=== PATIENT | female | born 1950 | race Caucasian/White ===

== ENCOUNTER 2017-05-22 20:02 | Inpatient (IN) ==
--- NOTE | 2017-05-22 20:45 | EKG Report ---
Stationary ECG Study [facility] ER Test Date: 05/22/2017 8:43:23 PM Pat Name: PALMER KELLY Department: Room: Gender: F Explosive Operator Fuse: SR : 1950 Requested by: Juanita Carter Order Number: [id number] Km MD: MOLLY DAVIS Intervals [place] Rate: 66 P: 65 WA: 159 QRS: 76 QRSD: 108 T: 79 QT: 447 QTc: 460 Interpretive Statements SINUS RHYTHM SEPTAL MYOCARDIAL INFARCTION, OF INDETERMINATE AGE Electronically Signed On 05-23-17 09:27:20 CDT by MOLLY DAVIS [email or web address]
[2017-05-22 20:49] LABS: Basophils % 0.3 % (0.0-0.8); Eosinophils # 0.2 10*3/uL (0.0-0.87); Eosinophils % 1.9 % (0.00-10.9); Hematocrit 34.9 VOL% (35.7-47.0); Hemoglobin 12.4 GM/DL (12.0-16.0); Immature Granulocytes % 0.7 %; Immature Granulocytes Absolute 0.07 #; Lymphocytes # 2.3 10*3/uL (1.4-4.0); Lymphocytes % 22.8 % (21.3-54.2); Mean Corpuscular HGB Conc 35.5 GM/DL (32-36); Mean Corpuscular Hemoglobin 32 PG (27-34); Mean Corpuscular Volume 89.9 FL (87-102); Mean Platelet Volume 9.6 FL (9.6-12.0); Monocytes # 0.5 10*3/uL (0.11-0.8); Monocytes % 5.3 % (1.7-12.7); Neutrophils # 7.1 10*3/uL (1.4-7.4); Platelet Count 212 T/CUMM (130-400); Red Blood Count 3.88 MC/CUMM (3.8-5.5); Red Cell Distribution Width 12.9 % (9.3-17.3); White Blood Count 10.2 T/CUMM (4-12)
[2017-05-22 20:55] LABS: INR 1.1; PT Patient Result 11.2 SECS
[2017-05-22 21:03] LABS: Alanine Aminotransferase 18 U/L (13-56); Albumin 3.1 G/DL (3.4-5.0); Alkaline Phosphatase 104 U/L (45-117); Aspartate Amino Transferase 16 U/L (0-37); Bilirubin,Total < 0.39 MG/DL (0.2-1.0); Blood Urea Nitrogen 12 MG/DL (7-18); Calcium 8.1 MG/DL (8.5-10.1); Glucose 142 MG/DL (74-106); Osmolality,Calculated 267.4 MOS/KG (273-304); Potassium 3.2 MMOL/L (3.5-5.1); Sodium 133 MMOL/L (136-145); Total Protein 5.7 G/DL (6.4-8.3)
[2017-05-22] MEDS ORDERED: ONDANSETRON 4 MG/2 ML VIAL ONE (21:03)
[2017-05-22 21:04] LABS: Troponin I Only < 0.015 NG/ML (0.00-0.045)
[2017-05-22 21:29] LABS: Apearance,Urine CLEAR (Clear); Bilirubin,Urine Negative (Negative); Blood, Urine Negative (Negative); Glucose,Urine (UA) Negative (Negative); Hyaline Casts,Urine 19 /LPF (0-3); Ketones,Urine Negative (Negative); Mucus,Urine Occasional /LPF (Occasional); Nitrite,Urine Negative (Negative); Protein,Urine Negative; RBC,Urine <1 /HPF (0-4); Urine Color Yellow (Yellow); Urine Specific Gravity 1.011 (1.001-1.035); Urine Urobilinogen < 2.0 EU/DL (0.2-1.0); WBC,Urine 1 /HPF (0-6)
[2017-05-22] MEDS ORDERED: ACETAMINOPHEN 325 MG TABLET PO PRN (22:17)
[2017-05-22] MEDS ORDERED: ONDANSETRON 4 MG/2 ML VIAL IV PRN (22:17)
[2017-05-22] MEDS ORDERED: BISACODYL 5 MG TABLET PO PRN (22:17)
--- NOTE | 2017-05-22 22:20 | Hospitalist History & Physical ---
Assessment and Plan (1) Subcapital fracture of left femur Status: Acute Current Visit: Yes Qualifiers: Encounter type: initial encounter Fracture type: closed Qualified Code(s) : S72.012A - Unspecified intracapsular fracture of left femur, initial encounter for closed fracture (2) Insulin dependent diabetes mellitus Status: Acute Current Visit: Yes (3) Near syncope Status: Acute Current Visit: Yes (4) Hypoglycemia associated with diabetes Status: Acute Current Visit: Yes (5) COPD (chronic obstructive pulmonary disease) Status: Acute Current Visit: Yes Qualifiers: COPD type: unspecified COPD Qualified Code(s): J44.9 - Chronic obstructive pulmonary disease, unspecified (6) Smoker Status: Acute Current Visit: Yes (7) History of coronary artery disease Status: Acute Assessment and plan: Plan: Admit to hospitalist service, orthopedic consultation and fixation likely in the morning Serial Accu-Cheks/sliding-scale insulin Supportive care for pain, nicotine withdrawal Supplemental O2, duo nebs given her history of COPD Near syncopal episode sounds like a vasovagal event, no recent angina/shortness of breath Current Visit: Yes History of Present Illness Chief complaint: Fall with left hip pain History of present illness: Ms. Hernandez is a 66 year old female with insulin-dependent diabetes who reports very labile blood sugars and frequent hypoglycemia causing frequent dizziness and falls, hypertension, smoker, history of coronary artery disease. She is here with a left hip fracture. Earlier this afternoon she was in her garden picking tomatoes when she stood up rather abruptly, became dizzy and fell on her left side resulting in severe pain, 8 out of 10 at worst, nonradiating, partially relieved with pain medication in the ER. She likely had a vasovagal event, no true syncope. She has not had chest pain/angina, no shortness of breath, no nausea vomiting or diarrhea. She relates her frequent dizziness and multiple falls due to very labile blood sugar, with frequent hypoglycemia in the 30s-40s multiple times per week. She states she has been a brittle diabetic for many years. She will be admitted to the hospitalist service and will likely undergo fixation of her fracture tomorrow. Allergies Allergy/AdvReac Type Severity Reaction Status Date / Time Penicillins Allergy RASH Verified 05/22/17 20:38 Medical,Surgical,& Family Hx - Medical History Cardio: History of: CAD (History of LAD and RCA stent in 2013), Hypertension Endocrine: History of: Diabetes Mellitus (IDDM) Respiratory: History of: COPD - Surgical History Cardiac Surgeries: Sugical HX of: Cardiac Catheterization - Family History Family History: Reports;: Family Hypertension - Social History Smoking Status: Current every day smoker Have you smoked in the last 12 months: Yes Time spent discussing smoking cessation with patient: 3 to 10 minutes Frequency of Alcohol Use: None Type of Drug Use: None Marital Status: Unknown Lives With:: Spouse Functional capacity: independent ambulation Review of systems: A 12 point review of systems is negative except as specified in the HPI Exam - Constitutional Vitals: Period Temp Pulse Resp BP Sys/Barrett Pulse Ox Last 24 Hr 97.4 F-97.4 F 92-92 18-18 121-121/72-74 92 Exam: EXAM: CONSTITUTIONAL: non toxic, NAD HEENT: NC, AT, OP benign, KAMILA, EOMI CV: RRR no m/g/r RESP: clear B/L, no w/r/r GI: abd soft, NT, ND, +bowel sounds INTEGUMENTARY: no lesions or rash EXTREMITIES: No edema, pedal pulses intact, pain along the lateral aspect of the left lower extremity NEURO: no focal deficits PSYCH: unremarkable, A/O x3 Results - Labs CBC & BMP: 05/22/17 20:27 05/22/17 20:27 Lab Results: I have reviewed the past 24 hour labs - EKG EKG shows: sinus rhythm - Diagnostic Findings Procedure: Chest x-ray: image reviewed by me, X-ray: image reviewed by me
[2017-05-22] MEDS ORDERED: HYDROmorphone 2 MG/1 ML VIAL IV STA (22:23)
[2017-05-22] MEDS ORDERED: HYDROmorphone 2 MG/1 ML VIAL ONE (22:25)
--- NOTE | 2017-05-22 22:59 | Emergency Department Note ---
IIndia Mantricia, am scribing for, and in the presence of, Juanita Carter DO 20:52. I, Juanita Carter DO, personally performed the services described in this documentation, ascribed by Jackie Osborne in my presence, and it is both accurate and complete . Arrival - Arrival Chief Complaint: Fall Stated Complaint: Fall ED Nursing Triage Note: Pt to triage with c/o fall that happpen this afternoon. Pt states she was working in her garden. Pt doesnt remember what happen prior to her falling and unsure if she lost any LOC. Pt does complain of sever left hip pain and and pain all down the left side. Pt arrived on back board. Pt was giving 5mg morphine IVP and 8mg Zofran IVP, and 1 liter of NS. Blood sugar check upon arrival -146. Mode of Arrival: Stretcher Limitations: No Limitations Source: Patient - History of Present Illness HPI Narrative: Pt is a 66 y/o white female arriving to ED by EMS for evaluation of injuries s/ p fall that happened an hour [employer]. Pt states that she walked outside to pick tomatoes from the vine when she became dizzy and fell. She states that the sun was not beaming; however, it was hot out. Pt denies any LOC or hitting her head but reports that she did hit the ground hard resulting in left hip pain and leg pain. She was unable to walk or move her left leg after the fall. EMS reports she was confused on scene. Pt states that she has fallen once before due to dizziness and has had several episodes of syncope that she attributes to hypoglycemia. Pt has a PMHx of IDDM, HTN, and HLD. She reports no other complaints to ED. Onset (ago): hour(s) Consistency: constant Severity: mild Allergies/Adverse Reactions: Allergies Allergy/AdvReac Type Severity Reaction Status Date / Time Penicillins Allergy RASH Verified 05/22/17 20:38 Review of System - Review of System 12 point system: reviewed and no additional remarkable complaints except as stated - Review of System Constitutional: Absent: chills, diaphoresis, fever Gastrointestinal: Absent: abdominal pain, nausea, vomiting, diarrhea Musculoskeletal: Present: leg pain (left), other (left hip pain). Absent: arm pain, back pain, neck pain Neurological: Absent: headache, weakness, numbness Medical,Surgical,& Family Hx - Medical History Cardio: History of: Hypertension Endocrine: History of: Diabetes Mellitus (IDDM) - Social History Smoking Status: Current every day smoker Frequency of Alcohol Use: None Type of Drug Use: None Exam Vital Signs: Vital Signs Temperature 97.4 F L 05/22/17 20:15 Pulse Rate 92 H 05/22/17 20:15 Respiratory Rate 18 05/22/17 20:15 Blood Pressure 121/74 05/22/17 20:15 O2 Sat by Pulse Oximetry 92 L 05/22/17 20:15 - General General appearance: alert, in no apparent distress - Head Head exam: Present: atraumatic, normocephalic, normal inspection - Eye Eye exam: Present: normal appearance, PERRL, EOMI - ENT ENT exam: Present: normal exam, normal oropharynx, mucous membranes moist, TM's normal bilaterally, normal external ear exam - Neck Neck exam: Present: normal inspection, full ROM, trachea midline. Absent: tenderness - Chest Chest inspection: Present: normal inspection, symmetric chest wall rise. Absent : tenderness - Respiratory Respiratory exam: Present: other (distant lung sounds) - Cardiovascular Cardiovascular exam: Present: regular rate, normal rhythm, normal heart sounds - Abdominal Exam Abdominal exam: Present: soft, normal bowel sounds. Absent: distention, tenderness, guarding, rebound - Extremities Exam Extremities exam: Present: tenderness (left hip down into left leg), normal capillary refill - Back Exam Back exam: Present: normal inspection, full ROM. Absent: tenderness - Neurological Exam Neurological exam: Present: alert, oriented X3, CN II-XII intact, normal gait, reflexes normal - Psychiatric Psychiatric exam: Present: normal affect, normal mood - Skin Skin exam: Present: warm, dry, intact, normal color Course Course Narrative: strong suspicion that left hip fracture. Requiring pain medication and nausea medication. Xray does confirm. however, given history of syncope that caused the fall, I will admit the patient to hospitalist for further workup and will call orthopedics as senior treasury consultant. Both services agree this is the best plan. Patient and family are notified and agree. - Consultations Consultation #1: holli Astudillo. Consultation #2: Hospitalist Results - Labs CBC & BMP: 05/22/17 20:27 05/22/17 20:27 Lab Results: I have reviewed the patients labs - EKG EKG results: interpreted by KOBI, normal axis, normal ST/T - Diagnostic Findings Procedure: Chest x-ray: image reviewed by me (normal), X-ray: image reviewed by me (left intertrocanteric fracture) Disposition Clinical Impression: Fracture, intertrochanteric, left femur Case discussed with: patient Disposition: Still a Patient Condition: Stable
[2017-05-22] MEDS ORDERED: DEXTROSE 50% 25 GM/50 ML VIAL IV PRN (23:07)
[2017-05-22] MEDS ORDERED: GLUCAGON 1 MG VIAL IM PRN (23:07)
[2017-05-22] MEDS: INSULIN REGULAR 100 UNIT/ML SUBCUT SCH (23:50)
[2017-05-23] MEDS ORDERED: NICOTINE 21 MG/24 HR PATCH TRANSDERM PRN (00:33)
[2017-05-23] MEDS ORDERED: CLINDAMYCIN INJ 900 MG in PREMIX 1 EACH IV ONE (00:50)
[2017-05-23] MEDS ORDERED: MAGNESIUM HYDROXIDE SUSP 30 ML UDCUP PO PRN ×2 (00:50→14:13)
[2017-05-23 02:14] LABS: PT Patient Result 11.1 SECS
[2017-05-23 02:39] LABS: Calcium 8.4 MG/DL (8.5-10.1); Osmolality,Calculated 262.7 MOS/KG (273-304); Potassium 3.3 MMOL/L (3.5-5.1)
[2017-05-23 02:51] LABS: Basophils % 0.3 % (0.0-0.8); Eosinophils # 0.1 10*3/uL (0.0-0.87); Eosinophils % 0.7 % (0.00-10.9); Hematocrit 37.1 VOL% (35.7-47.0); Hemoglobin 13.1 GM/DL (12.0-16.0); Immature Granulocytes % 0.5 %; Immature Granulocytes Absolute 0.06 #; Lymphocytes # 2.4 10*3/uL (1.4-4.0); Lymphocytes % 20.8 % (21.3-54.2); Mean Corpuscular HGB Conc 35.3 GM/DL (32-36); Mean Corpuscular Hemoglobin 32 PG (27-34); Mean Corpuscular Volume 89.6 FL (87-102); Mean Platelet Volume 9.8 FL (9.6-12.0); Monocytes # 0.6 10*3/uL (0.11-0.8); Monocytes % 5.4 % (1.7-12.7); Neutrophils # 8.5 10*3/uL (1.4-7.4); Neutrophils % 72.3 % (38.7-73.9); Platelet Count 218 T/CUMM (130-400); Red Blood Count 4.14 MC/CUMM (3.8-5.5); Red Cell Distribution Width 12.7 % (9.3-17.3); White Blood Count 11.7 T/CUMM (4-12)
[2017-05-23] MEDS: MORPHINE 2 MG/1 ML SYRINGE IV PRN ×3 (03:59→22:18)
[2017-05-23] MEDS: INSULIN REGULAR 100 UNIT/ML SUBCUT SCH ×5 (05:12→22:11)
--- NOTE | 2017-05-23 07:46 | Orthopedic Consult Note ---
History of Present Illness Chief complaint: Left hip pain History of present illness: Ms. Hernandez is a 66 year old female who fell yesterday while in her garden. The patient has been having presyncopal episodes over the last several weeks. She has had a prior fall in her house. She denies complete loss of consciousness. She denies any previous history of problems with her left hip. She denies any other current injury. I have treated her for a previous right tibia fracture with intramedullary nailing. Home Medications Medication Instructions Recorded Confirmed Type Amitriptyline HCl 1 tablet PO BEDTIME 05/23/17 05/23/17 History Atorvastatin [Lipitor] 20 mg PO BEDTIME 05/23/17 05/23/17 History Butalb/Acetaminophen/Caffeine 1 tablet PO BID PRN 05/23/17 05/23/17 History [Esgic 50-325-40 mg Tablet] Fluoxetine HCl 1 capsule PO DAILY 05/23/17 05/23/17 History Hydrocodone/Acetaminophen [[place] 1 tablet PO TID PRN 05/23/17 05/23/17 History 10-325 Tablet] Meloxicam 15 mg PO DAILY 05/23/17 05/23/17 History Nitroglycerin Sl Tab [Nitrostat] 1 tablet SL DIRECTED 05/23/17 05/23/17 History Pregabalin [Lyrica] 1 capsule PO BID 05/23/17 05/23/17 History Trazodone HCl 2 tablet PO BEDTIME 05/23/17 05/23/17 History Valsartan/Hydrochlorothiazide 1 tablet PO DAILY 05/23/17 05/23/17 History [Valsartan-Hctz 320-12.5 mg Tab] amLODIPine [Norvasc] 1 tablet PO BEDTIME 05/23/17 05/23/17 History buPROPion HCl [Bupropion HCl] 1 tablet PO BID 05/23/17 05/23/17 History hydrOXYzine HCL TAB [Atarax Tab] 25 mg PO BID PRN 05/23/17 05/23/17 History hydrOXYzine HCl [Hydroxyzine HCl] 1 tablet PO BID PRN 05/23/17 05/23/17 History hydroCHLOROthiazide 1 capsule PO BID 05/23/17 05/23/17 History [Hydrochlorothiazide] Allergies Allergy/AdvReac Type Severity Reaction Status Date / Time Penicillins Allergy RASH Verified 05/23/17 00:37 Medical,Surgical,& Family Hx - Medical History Cardio: History of: CAD (History of LAD and RCA stent in 2013), Hypertension Endocrine: History of: Diabetes Mellitus (IDDM) Respiratory: History of: COPD - Surgical History Cardiac Surgeries: Sugical HX of: Cardiac Catheterization Abdominal Surgeries: Patient denies: Abdominal Surgery - Family History Family History: Reports;: Family Hypertension - Social History Smoking Status: Current every day smoker Frequency of Alcohol Use: None Type of Drug Use: None Exam - Constitutional Vitals: Period Temp Pulse Resp BP Sys/Barrett Pulse Ox Last 24 Hr 97.1 F-98.8 F 64-92 16-18 109-131/67-83 91-94 Alert and oriented. Left lower extremity shows some mild shortening. No external rotation. Sensation is decreased in a stocking distribution to just distal to her knee. She has a 2+ dorsalis pedis pulse. Because of pain she is able to limitedly flex and extend her ankle. She is unable to move her toes. AP pelvis, AP lateral left hip was reviewed. Demonstrates a minimally displaced left intertrochanteric hip fracture. Impression: Left intertrochanteric hip fracture. Plan: I have advised open reduction fixation of her left hip. Risks, benefits and rationale for the procedure were discussed. All questions were answered. We will proceed later today. Results - Labs CBC & BMP: 05/23/17 01:54 05/23/17 01:54 Assessment and Plan (1) Closed intertrochanteric fracture of left hip Status: Acute Current Visit: Yes Qualifiers: Encounter type: initial encounter Fracture alignment: displaced Qualified Code(s): S72.142A - Displaced intertrochanteric fracture of left femur , initial encounter for closed fracture
--- NOTE | 2017-05-23 07:51 | XRay Report ---
XR hip 2v w pelvis LT Clinical Information: FALL, PAIN Comparison: None available Findings: There is an acute mildly comminuted left intertrochanteric femoral neck fracture. There is no evidence of dislocation at the hip joint. There is overlying soft tissue swelling. No focal osseous or soft tissue lesions are identified. Impression: Acute intertrochanteric left femoral neck fracture as detailed above. No evidence of hip dislocation. PROCEDURE INTERPRETED AT [facility], [place] DEPARTMENT OF RADIOLOGY Final Report Signed by: Mando Chacko
--- NOTE | 2017-05-23 07:53 | XRay Report ---
Exam: XR chest 1V portable Indication: Preop Comparison study: 10/02/2013 Findings: Chronic interstitial scarring changes are again noted and slightly increased from prior. No focal airspace disease is evident. There is no pneumothorax or pleural effusion. Cardiac silhouette images are contours appear stable from prior. No acute osseous abnormality. Impression: Chronic interstitial changes. Otherwise, no significant change. PROCEDURE INTERPRETED AT [facility] DEPARTMENT OF RADIOLOGY Final Report Signed by: Mando Chacko
[2017-05-23] MEDS: PANTOPRAZOLE 40 MG TABLET PO SCH (08:45)
--- NOTE | 2017-05-23 10:23 | Hospitalist Progress Note ---
Assessment and Plan (1) Insulin dependent diabetes mellitus Status: Chronic Assessment and plan: Patient at this time has not provided any indication regarding her routine management of her diabetes at home. Current Visit: Yes (2) COPD (chronic obstructive pulmonary disease) Status: Chronic Assessment and plan: Patient is a smoker apparently currently requiring no active treatment. Her chest x-ray is substantially SLICK rotated however both pulmonary artery appear to be dilated. There is a diffuse overall fibrosis with linear stranding towards the right upper lobe. Current Visit: Yes Qualifiers: COPD type: unspecified COPD Qualified Code(s): J44.9 - Chronic obstructive pulmonary disease, unspecified (3) Closed intertrochanteric fracture of left hip Status: Acute Assessment and plan: Fall associated with syncopal episode. Current Visit: Yes Qualifiers: Encounter type: initial encounter Fracture alignment: displaced Qualified Code(s): S72.142A - Displaced intertrochanteric fracture of left femur , initial encounter for closed fracture Hospitalist: Subjective Interval history: 66-year-old female long-term diabetic, hypertensive with history of coronary artery disease with percutaneous intervention to the left anterior descending coronary artery and right coronary artery approximately 4 years ago. Patient has been bothered by intermittent episodes of lightheadedness and yesterday while working in the garden had an episode where she lost consciousness completely. With this she sustained a left hip fracture. She has a history of palpitations her monitor strips thus far shown only sinus rhythm her EKG shows clockwise precordial rotation with no evidence of LVH. Her vital signs are stable overnight. She is anticipated for surgical repair today. Exam - Constitutional Vitals: Period Temp Pulse Resp BP Sys/Barrett Pulse Ox Last 24 Hr 97.1 F-98.8 F 64-92 16-18 109-131/67-83 91-94 General appearance: normal weight, no acute distress - Respiratory Respiratory exam: Present: clear to auscultation bilaterally. Absent: rales, rhonchi, wheezes - GI/Abdominal GI/Abdominal exam: Present: normal bowel sounds. Absent: tenderness - Extremities Exam Extremities exam: Absent: edema - Neurological Exam Neurological exam: Present: alert, oriented X3 Results - Labs CBC & BMP: 05/23/17 01:54 05/23/17 01:54 - Impressions Sinus rhythm with clockwise precordial rotation. Criteria for right ventricular hypertrophy not met. - Diagnostic Findings Procedure: Chest x-ray: image reviewed by me (Normal heart size, interstitial fibrotic change, hilar fullness bilaterally)
[2017-05-23] MEDS ORDERED: ALBUTEROL/IPRATROPIUM 3 ML NEB RESP TX PRN (11:06)
[2017-05-23] MEDS ORDERED: BACITRACIN OINT 0.9 GM PACK TOP ONE (13:06)
[2017-05-23] MEDS ORDERED: DEXTROSE 50% 25 GM/50 ML VIAL IV ONE (13:49)
[2017-05-23] MEDS ORDERED: LIDOCAINE 2% 5 ML VIAL ONE (13:51)
[2017-05-23] MEDS ORDERED: ONDANSETRON 4 MG/2 ML VIAL ONE ×2 (13:51→15:32)
[2017-05-23] MEDS ORDERED: PROPOFOL 200 MG/20 ML VIAL IV ONE (13:51)
[2017-05-23] MEDS ORDERED: PHENYLEPHRINE 1 MG/10 ML SYRINGE IV ONE (13:51)
[2017-05-23] MEDS ORDERED: MORPHINE 2 MG/1 ML SYRINGE IV PRN (14:13)
--- NOTE | 2017-05-23 14:49 | Operative Note ---
Date of procedure: 05/23/17 Procedure: DIAGNOSIS: Left hip intertrochanteric fracture PROCEDURE: Left ORIF hip (CPT# 25382) SURGEON: Wilda ANESTHESIA: General PROCEDURE and FINDINGS: After adequate anesthesia was induced, the patient was placed on the fracture table. A provisional reduction was obtained. The limb was prepped and draped in the usual sterile fashion. Lateral approach to the proximal femur was made. Skin, subcutaneous tissue and iliotibial band were incised. Vastus lateralis was elevated from the intramuscular septum and lateral aspect of the femur. Guidepin was placed, overreamed, and tapped. 90 mm hip screw was placed followed by a 130 degree 3 hole plate. Screw holes were filled. Wound was irrigated. Iliotibial band was repaired with O Vicryl [id number] sutures. Subcutaneous tissues were repaired deep with 2-0 Vicryl runner and superficially with 3-0 interrupted Vicryl suture. Simran were used to approximate the skin. Sterile occlusive dressing and bacitracin were applied. Image intensification was used throughout the procedure. EBL: 10 cc Surgeon / Physician: Abdirahman Astudillo Jr. Results - Labs CBC & BMP: 05/23/17 01:54 05/23/17 01:54 Discharge Plan - Discharge Medications No Action hydrOXYzine HCL TAB [Atarax Tab] 25 mg PO BID PRN PRN Reason: Itching Nitroglycerin Sl Tab [Nitrostat] 1 tablet SL DIRECTED hydrOXYzine HCl [Hydroxyzine HCl] 1 tablet PO BID PRN PRN Reason: Itching buPROPion HCl [Bupropion HCl] 1 tablet PO BID hydroCHLOROthiazide [Hydrochlorothiazide] 1 capsule PO BID amLODIPine [Norvasc] 1 tablet PO BEDTIME Pregabalin [Lyrica] 1 capsule PO BID Meloxicam 15 mg PO DAILY Valsartan/Hydrochlorothiazide [Valsartan-Hctz 320-12.5 mg Tab] 1 tablet PO DAILY Trazodone HCl 2 tablet PO BEDTIME Hydrocodone/Acetaminophen [[place] 10-325 Tablet] 1 tablet PO TID PRN PRN Reason: Pain Atorvastatin [Lipitor] 20 mg PO BEDTIME Amitriptyline HCl 1 tablet PO BEDTIME Butalb/Acetaminophen/Caffeine [Esgic 50-325-40 mg Tablet] 1 tablet PO BID PRN PRN Reason: Headache Fluoxetine HCl 1 capsule PO DAILY - Follow Up or Referral - Forms/Instructions
--- NOTE | 2017-05-23 15:12 | Anesthesia Post-Op ---
Anesthesia Post OP - Post Ansesthetic Evaluation Patient seen in post op: Yes Resp: within normal limits CV: within normal limits Mental: within normal limits Temp: within normal limits [id number]-[id number]: within normal limits Nausea and Vomiting: within normal limits Pain: within normal limits
[2017-05-23] MEDS ORDERED: diphenhydrAMINE 50 MG/1 ML VIAL IV ONE (15:16)
[2017-05-23] MEDS ORDERED: diphenhydrAMINE 50 MG/1 ML VIAL ONE (15:17)
[2017-05-23] MEDS ORDERED: SEVOFLURANE 1 UNIT/15 MINUTE INH ONE (15:18)
[2017-05-23] MEDS ORDERED: MIDAZOLAM 2 MG/2 ML VIAL ONE (15:19)
[2017-05-23] MEDS ORDERED: ACETAMINOPHEN 1,000 MG/100 ML VIAL IV ONE (15:19)
[2017-05-23] MEDS ORDERED: ONDANSETRON 4 MG/2 ML VIAL IV PRN (15:28)
[2017-05-23] MEDS ORDERED: HYDROmorphone 2 MG/1 ML VIAL ONE (15:32)
[2017-05-23] MEDS: HYDROmorphone 2 MG/1 ML VIAL IV PRN ×4 (15:35→16:03)
--- NOTE | 2017-05-23 16:36 | XRay Report ---
Left hip, intraoperative fluoroscopy. Fluoroscopy time, 21 seconds. Intraoperative fluoroscopy was provided for the primary service during open reduction and internal fixation of the left hip fracture. Indication: Left intertrochanteric hip fracture. Multiple digital images, 6 in total were obtained which are presumed to serve the clinical purposes. They show placement of orthopedic hardware to stabilize the left proximal femoral fracture. PROCEDURE INTERPRETED AT [facility] DEPARTMENT OF RADIOLOGY Final Report Signed by: Dr. Opal Busch
[2017-05-23] MEDS: KETOROLAC 15 MG/1 ML VIAL IV SCH ×2 (17:44→20:16)
[2017-05-23] MEDS: CLINDAMYCIN INJ 900 MG in PREMIX 1 EACH IV SCH (19:28)
[2017-05-23] MEDS: buPROPion 100 MG TABLET PO SCH (20:17)
[2017-05-23] MEDS: traZODone 50 MG TABLET PO SCH (20:17)
[2017-05-23] MEDS: amLODIPine 5 MG TABLET PO SCH (20:17)
[2017-05-23] MEDS: PREGABALIN 100 MG CAPSULE PO SCH (20:18)
[2017-05-23] MEDS: DOCUSATE SODIUM 100 MG CAPSULE PO SCH (20:18)
[2017-05-23] MEDS: AMITRIPTYLINE 100 MG TABLET PO SCH (20:18)
[2017-05-23] MEDS: ATORVASTATIN 20 MG TABLET PO SCH (20:18)
[2017-05-24] MEDS: INSULIN REGULAR 100 UNIT/ML SUBCUT SCH ×6 (00:01→21:13)
[2017-05-24] MEDS: CLINDAMYCIN INJ 900 MG in PREMIX 1 EACH IV SCH (02:15)
[2017-05-24] MEDS: KETOROLAC 15 MG/1 ML VIAL IV SCH ×2 (02:15→09:55)
[2017-05-24 05:06] LABS: Basophils % 0.4 % (0.0-0.8); Eosinophils # 0.2 10*3/uL (0.0-0.87); Eosinophils % 2.8 % (0.00-10.9); Hematocrit 34.7 VOL% (35.7-47.0); Hemoglobin 11.9 GM/DL (12.0-16.0); Immature Granulocytes % 0.5 %; Immature Granulocytes Absolute 0.04 #; Lymphocytes # 1.4 10*3/uL (1.4-4.0); Lymphocytes % 18.5 % (21.3-54.2); Mean Corpuscular HGB Conc 34.3 GM/DL (32-36); Mean Corpuscular Hemoglobin 31 PG (27-34); Mean Corpuscular Volume 91.3 FL (87-102); Mean Platelet Volume 10.1 FL (9.6-12.0); Monocytes # 0.7 10*3/uL (0.11-0.8); Monocytes % 9.5 % (1.7-12.7); Neutrophils # 5.3 10*3/uL (1.4-7.4); Neutrophils % 68.3 % (38.7-73.9); Platelet Count 180 T/CUMM (130-400); White Blood Count 7.8 T/CUMM (4-12)
[2017-05-24 05:37] LABS: Calcium 8.3 MG/DL (8.5-10.1); Osmolality,Calculated 264.2 MOS/KG (273-304); Potassium 3.3 MMOL/L (3.5-5.1)
--- NOTE | 2017-05-24 09:12 | Hospitalist Progress Note ---
Assessment and Plan (1) Insulin dependent diabetes mellitus Status: Chronic Assessment and plan: Patient had not provided any indication regarding her routine management of her diabetes at home. On sliding scale coverage alone blood sugars have been adequately regulated with infected tendency toward slight hypoglycemia. Her described regimen from home includes high dose intermediate acting insulin with frequent use of short acting insulin treatment. Current Visit: Yes (2) COPD (chronic obstructive pulmonary disease) Status: Chronic Assessment and plan: Patient is a smoker apparently currently requiring no active treatment. Her chest x-ray is substantially [place] rotated however both pulmonary artery appear to be dilated. There is a diffuse overall fibrosis with linear stranding towards the right upper lobe. Current Visit: Yes Qualifiers: COPD type: unspecified COPD Qualified Code(s): J44.9 - Chronic obstructive pulmonary disease, unspecified (3) Closed intertrochanteric fracture of left hip Status: Acute Assessment and plan: Fall associated with syncopal episode possible episodes of hypoglycemia. Surgical repair May 23 Current Visit: Yes Qualifiers: Encounter type: initial encounter Fracture alignment: displaced Qualified Code(s): S72.142A - Displaced intertrochanteric fracture of left femur , initial encounter for closed fracture Hospitalist: Subjective Interval history: 66-year-old female long-term diabetic with hypertension and history of coronary artery disease with percutaneous intervention to left anterior descending coronary right coronary artery approximately 4 years prior to admission. At presentation the patient did not report any insulin use. She was noted to have low blood sugars and described episodes of lightheadedness. On the day of admission she had an episode with loss of consciousness fall and fracture of her left hip. On further history she reports that she has been taking knobby 170 3080 units in the morning and 85 units in the evening with pre-meal Humalog injections. We initially ordered a simultaneous glucose and insulin levels for hypoglycemia before this history was known. In hospital her blood sugar elevations have been minimal and covered adequately with a small dose sliding scale. It is possible the patient's diabetic condition has been overmedicated with recurrent episodes of hypoglycemia. She is doing well postoperatively with stable vital signs she is afebrile. Exam - Constitutional Vitals: Period Temp Pulse Resp BP Sys/Barrett Pulse Ox Last 24 Hr 97.6 F-99.8 F 70-88 16-74 77-172/40-96 90-100 General appearance: normal weight - Respiratory Respiratory exam: Present: clear to auscultation bilaterally. Absent: rales, rhonchi, wheezes - Cardiovascular Cardiovascular exam: Present: regular rate and rhythm - GI/Abdominal GI/Abdominal exam: Present: normal bowel sounds. Absent: tenderness - Extremities Exam Extremities exam: Absent: edema - Neurological Exam Neurological exam: Present: alert, oriented X3 Results - Labs CBC & BMP: 05/24/17 02:59 05/24/17 02:59
[2017-05-24] MEDS: FONDAPARINUX 2.5 MG/0.5 ML SYRINGE SUBCUT SCH (09:56)
[2017-05-24] MEDS: PANTOPRAZOLE 40 MG TABLET PO SCH (09:56)
[2017-05-24] MEDS: FLUoxetine 20 MG CAPSULE PO SCH (09:56)
[2017-05-24] MEDS: buPROPion 100 MG TABLET PO SCH ×2 (09:56→21:12)
[2017-05-24] MEDS: DOCUSATE SODIUM 100 MG CAPSULE PO SCH ×2 (09:56→21:12)
[2017-05-24] MEDS: PREGABALIN 100 MG CAPSULE PO SCH ×2 (09:56→21:12)
[2017-05-24] MEDS: VALSARTAN 160 MG TABLET PO SCH (09:57)
--- NOTE | 2017-05-24 10:13 | Orthopedic Progress Note ---
Assessment and Plan (1) Closed intertrochanteric fracture of left hip Status: Acute Current Visit: Yes Qualifiers: Encounter type: initial encounter Fracture alignment: displaced Qualified Code(s): S72.142A - Displaced intertrochanteric fracture of left femur , initial encounter for closed fracture Orthopedics - Subjective Interval history: comfortable. dressing slight ss drainage. moves ankle much better. she would like to go home with HH. mobilize with therapy. Exam - Constitutional Vitals: Period Temp Pulse Resp BP Sys/Barrett Pulse Ox Last 24 Hr 97.6 F-99.8 F 70-88 16-74 77-172/40-96 90-100 Results - Labs CBC & BMP: 05/24/17 02:59 05/24/17 02:59
[2017-05-24] MEDS: POTASSIUM CHLORIDE 20 MEQ/15 ML UDCUP PO SCH (15:39)
[2017-05-24] MEDS: CELECOXIB 200 MG CAPSULE PO SCH (21:12)
[2017-05-24] MEDS: amLODIPine 5 MG TABLET PO SCH (21:12)
[2017-05-24] MEDS: AMITRIPTYLINE 100 MG TABLET PO SCH (21:12)
[2017-05-24] MEDS: ATORVASTATIN 20 MG TABLET PO SCH (21:12)
[2017-05-24] MEDS: traZODone 50 MG TABLET PO SCH (21:12)
[2017-05-25] MEDS: INSULIN REGULAR 100 UNIT/ML SUBCUT SCH ×4 (00:37→11:23)
[2017-05-25 05:57] LABS: Basophils % 0.5 % (0.0-0.8); Eosinophils # 0.2 10*3/uL (0.0-0.87); Eosinophils % 2.5 % (0.00-10.9); Hematocrit 32.4 VOL% (35.7-47.0); Hemoglobin 11.3 GM/DL (12.0-16.0); Immature Granulocytes % 0.6 %; Immature Granulocytes Absolute 0.05 #; Lymphocytes # 2.7 10*3/uL (1.4-4.0); Lymphocytes % 31.3 % (21.3-54.2); Mean Corpuscular HGB Conc 34.9 GM/DL (32-36); Mean Corpuscular Hemoglobin 32 PG (27-34); Mean Corpuscular Volume 90.3 FL (87-102); Mean Platelet Volume 9.8 FL (9.6-12.0); Monocytes # 0.8 10*3/uL (0.11-0.8); Monocytes % 8.6 % (1.7-12.7); Neutrophils # 4.9 10*3/uL (1.4-7.4); Neutrophils % 56.5 % (38.7-73.9); Platelet Count 152 T/CUMM (130-400); Red Blood Count 3.59 MC/CUMM (3.8-5.5); White Blood Count 8.7 T/CUMM (4-12)
[2017-05-25] MEDS: FLUoxetine 20 MG CAPSULE PO SCH (09:03)
[2017-05-25] MEDS: VALSARTAN 160 MG TABLET PO SCH (09:03)
[2017-05-25] MEDS: buPROPion 100 MG TABLET PO SCH (09:03)
[2017-05-25] MEDS: PANTOPRAZOLE 40 MG TABLET PO SCH (09:03)
[2017-05-25] MEDS: POTASSIUM CHLORIDE 20 MEQ/15 ML UDCUP PO SCH (09:03)
[2017-05-25] MEDS: DOCUSATE SODIUM 100 MG CAPSULE PO SCH (09:03)
[2017-05-25] MEDS: PREGABALIN 100 MG CAPSULE PO SCH (09:03)
[2017-05-25] MEDS: CELECOXIB 200 MG CAPSULE PO SCH (09:03)
[2017-05-25] MEDS: FONDAPARINUX 2.5 MG/0.5 ML SYRINGE SUBCUT SCH (09:04)
--- NOTE | 2017-05-25 09:47 | Orthopedic Progress Note ---
Assessment and Plan (1) Closed intertrochanteric fracture of left hip Status: Acute Current Visit: Yes Qualifiers: Encounter type: initial encounter Fracture alignment: displaced Qualified Code(s): S72.142A - Displaced intertrochanteric fracture of left femur , initial encounter for closed fracture Orthopedics - Subjective Interval history: Mrs. Hernandez is comfortable this morning. She would like to be discharged later today if possible. Left lower extremity: Dressing clean, dry and intact. Neurovascularly unchanged. Plan: Daily dry dressing changes. Arrange for walker and bedside commode for home use. Wear LEONIDAS hose for 1 month. Follow-up appointment in 4 weeks. Discontinue cecilia and Steri-Strip wound on June 05, 2017. Prescription for [place] 7.5 with 30 tablets was written. Take aspirin 325 mg by mouth daily for 21 days. Exam - Constitutional Vitals: Period Temp Pulse Resp BP Sys/Barrett Pulse Ox Last 24 Hr 97.3 F-98.9 F 74-99 18-20 93-124/57-71 90-95 Results - Labs CBC & BMP: 05/25/17 05:48 05/24/17 02:59
--- NOTE | 2017-05-25 10:39 | Discharge Summary ---
Hospital Course - Hospital Course Hospital Course: 66 year old female with insulin-dependent diabetes associated with very labile blood sugars and frequent hypoglycemia causing frequent dizziness and falls was admitted to hospital with a left hip fracture. At home she was in her garden picking tomatoes when she stood up rather abruptly, became dizzy and fell on her left side resulting in severe pain, 8 out of 10 at worst, and was brought to the ER. breath, no nausea vomiting or diarrhea. She related her frequent dizziness and multiple falls to very labile blood sugar, with frequent hypoglycemia in the 30s-40s multiple times per week. She was admitted to the hospitalist service. She was found to be taking a large amount of insulin at home, which was not resumed in the hospital. She was just placed on low-dose sliding scale insulin, and her blood sugar sugars remained in the normal range. It was felt that she was taking around rather large dose of insulin then she needed, and she was counseled on that to take a smaller dose of insulin at home. Her near syncopal episode was felt to be related to her hypoglycemia. By adjusting her insulin in the hospital she did not have any further hypoglycemic episodes. Orthopedic service was consulted. And she underwent a left hip surgery to fix that left hip fracture. She had an unremarkable postoperative course. She is now able to ambulate with the help of a walker and physical therapy. She was given anticoagulation for DVT for prophylaxis in the hospital. This discharge she will be given about 30 days of Eliquis to complete her course of oral anti-anticoagulation for DVT prophylaxis. Her pain was quite well controlled with narcotics at home and will be continued at home on a as needed basis she will continue to follow up with her primary care physician on a regular basis for her chronic medical problems. She is now in a stable condition to be discharged home with appropriate follow-up. - Time spent with patient Time with patient DS: Less than 30 minutes Diagnosis - Discharge Diagnosis (1) Near syncope Status: Resolved (2) Hypoglycemia associated with diabetes Status: Resolved (3) Closed intertrochanteric fracture of left hip Status: Resolved Specialty Discharge - Follow Up or Referrals Follow up with: Abdirahman Astudillo Jr., MD [Physician] - (4 weeks ) Discharge Plan - Discharge Data Disposition: Disch To Home/Self Care Condition at Discharge: Stable Discharge Diet: diabetic diet Activity: ambulate only with your walker, as per physical therapy Hygiene: may shower, may tub bathe Weight Bearing at Discharge: full weight bearing Driving: not until seen by doctor Contact your physician if you experience:: fever over 101, Difficulty voiding, Redness or swelling, Nausea/Vomiting, Shortness of breath, Bleeding, pain uncontrolled by pain medications - Discharge Medications New HYDROcodone/ACETAMIN 7.5-325 [[place] 7.5-325] 2 tablet PO Q4H PRN #40 tablet PRN Reason: Moderate Pain unrelieved by 1 Nicotine 21 mg/24 Hr Patch [Nicoderm CQ 21 mg/24 hr Patch] 1 patch TRANSDERM DAILY PRN #30 patch PRN Reason: Nicotine Withdrawal Valsartan [Diovan] 320 mg PO DAILY #30 tablet Apixaban [Eliquis] 2.5 mg PO BID #60 tablet Celecoxib [Celebrex] 200 mg PO DAILY #60 capsule Continue hydrOXYzine HCL TAB [Atarax Tab] 25 mg PO BID PRN PRN Reason: Itching Nitroglycerin Sl Tab [Nitrostat] 1 tablet SL DIRECTED hydrOXYzine HCl [Hydroxyzine HCl] 1 tablet PO BID PRN PRN Reason: Itching buPROPion HCl [Bupropion HCl] 1 tablet PO BID hydroCHLOROthiazide [Hydrochlorothiazide] 1 capsule PO BID amLODIPine [Norvasc] 1 tablet PO BEDTIME Pregabalin [Lyrica] 1 capsule PO BID Meloxicam 15 mg PO DAILY Valsartan/Hydrochlorothiazide [Valsartan-Hctz 320-12.5 mg Tab] 1 tablet PO DAILY Trazodone HCl 2 tablet PO BEDTIME Hydrocodone/Acetaminophen [[place] 10-325 Tablet] 1 tablet PO TID PRN PRN Reason: Pain Atorvastatin [Lipitor] 20 mg PO BEDTIME Amitriptyline HCl 1 tablet PO BEDTIME Butalb/Acetaminophen/Caffeine [Esg[place] 50-325-40 mg Tablet] 1 tablet PO BID PRN PRN Reason: Headache Fluoxetine HCl 1 capsule PO DAILY - Follow Up or Referral Follow Up: Abdirahman Astudillo Jr., MD [Physician] - (4 weeks ) Primary Care, physician [Other] (in a week) - Forms/Instructions Exam - Constitutional Vitals: Period Temp Pulse Resp BP Sys/Barrett Pulse Ox Last 24 Hr 97.3 F-98.9 F 74-99 18-20 93-124/57-71 90-95 General appearance: normal weight, no acute distress - Head Head exam: Present: normal inspection, normocephalic, atraumatic - Eye Eye exam: Present: EOMI - ENT ENT exam: Present: normal exam - Neck Neck exam: Present: normal inspection - Respiratory Respiratory exam: Present: clear to auscultation bilaterally - GI/Abdominal GI/Abdominal exam: Present: normal bowel sounds - Extremities Exam Extremities exam: Present: normal inspection - Neurological Exam Neurological exam: Present: alert, oriented X3 - Psychiatric Psychiatric exam: Present: normal affect, normal mood - Skin Skin exam: Present: normal color, warm Discharge Results Procedures and tests throughout hospitalization: Pending Orders 05/23/17 16:13 Insulin Level Total Stat 05/26/17 04:00 Comp Blood Count Auto Diff IN AM Labs on day of discharge: Labs from last 24 hours 05/25/17 05/25/17 05/25/17 07:09 05:48 03:39 WBC 8.7 RBC 3.59 L Hgb 11.3 L Hct 32.4 L MCV 90.3 MCH 32 MCHC 34.9 RDW 13.0 Plt Count 152 MPV 9.8 Neut % (Auto) 56.5 Lymph % (Auto) 31.3 [place] % (Auto) 8.6 Eos % (Auto) 2.5 Baso % (Auto) 0.5 Neut # (Auto) 4.9 Lymph # (Auto) 2.7 [place] # (Auto) 0.8 Eos # (Auto) 0.2 Baso # (Auto) 0.0 Immature Gran % 0.6 Nucleated RBC % 0.0 Immature Gran # 0.05 Nucleated RBCs # 0.00 POC Glucose 172 H 171 H 05/24/17 05/24/17 05/24/17 23:50 20:01 16:14 WBC RBC Hgb Hct MCV MCH MCHC RDW Plt Count MPV Neut % (Auto) Lymph % (Auto) [place] % (Auto) Eos % (Auto) Baso % (Auto) Neut # (Auto) Lymph # (Auto) [place] # (Auto) Eos # (Auto) Baso # (Auto) Immature Gran % Nucleated RBC % Immature Gran # Nucleated RBCs # POC Glucose 322 H 210 H 275 H 05/24/17 11:14 WBC RBC Hgb Hct MCV MCH MCHC RDW Plt Count MPV Neut % (Auto) Lymph % (Auto) [place] % (Auto) Eos % (Auto) Baso % (Auto) Neut # (Auto) Lymph # (Auto) [place] # (Auto) Eos # (Auto) Baso # (Auto) Immature Gran % Nucleated RBC % Immature Gran # Nucleated RBCs # POC Glucose 247 H - Imaging and Cardiology Procedure: X-ray: report reviewed by me (Left hip x-ray showed left femoral neck fracture. Repeat chest repeat x-ray after surgery revealed aligned hardware in her left hip with near normal anatomy.) DS: Provider Date of admission: 05/22/17 22:18 Primary care physician: . No PCP Attending physician on admission: Vickey Faust DO Consults: 05/22/17 22:17 Consult to Physician [CONS] Routine Comment: L hip fx Consulting Provider: Abdirahman Astudillo Jr. Consulting Provider Notified: Yes When should Consulting Provider be notified: In am Person Notified: dr. astudillo saw Date Notified: 05/23/17 Time Notified: 07:23 Consult Notification Comment: saida called with consult and room number 05/23/17 00:50 Consult to Anesthesiology [CONS] Routine Consulting Provider: Reason for Anesthesiology: Pre-op Clearance 05/23/17 14:13 Consult to Case Mgmt/Social Srvs [CONS] Routine Reason for Case Mgmt/Social Srvs: Rehab Home Health Equipment Consult Comment: Bedside Commode, CPM, Walker Consult to Occupational Therapy [CONS] Routine Reason for Occupational Therapy: Evaluate and Treat Consult Comment: ADL's Consult to Physical Therapy [CONS] Routine Reason for Physical Therapy: Evaluate and Treat Gait Training Consult Comment: wbat with walker Discharging clinician: Lesly George MD
[2017-05-25 11:46] VITALS: BP 100/65
== END 2017-05-25 13:25 | disposition home health service (06) | DRG 482 ==
LOC: EDBD → EDUNIT# → N.ED 20:02 → SUATTDRO 22:17 → N.EDINP 22:17 → SUATTDRO 22:18 → N.3E 22:52
PROVIDERS: ADMIT Internal Medicine; ATTEND Hospitalist

== ENCOUNTER 2017-05-26 15:40 | Observation (INO) ==
[2017-05-26] MEDS ORDERED: NALOXONE 0.4 MG/ML VIAL IV STA (16:35)
[2017-05-26] MEDS ORDERED: NALOXONE 0.4 MG/ML VIAL ONE (16:40)
[2017-05-26 16:42] LABS: Basophils % 0.1 % (0.0-0.8); Eosinophils % 0.1 % (0.00-10.9); Hematocrit 33.8 VOL% (35.7-47.0); Hemoglobin 11.9 GM/DL (12.0-16.0); Immature Granulocytes % 0.5 %; Immature Granulocytes Absolute 0.04 #; Lymphocytes # 1.2 10*3/uL (1.4-4.0); Lymphocytes % 15.8 % (21.3-54.2); Mean Corpuscular HGB Conc 35.2 GM/DL (32-36); Mean Corpuscular Hemoglobin 32 PG (27-34); Mean Corpuscular Volume 89.4 FL (87-102); Mean Platelet Volume 10.3 FL (9.6-12.0); Monocytes # 0.5 10*3/uL (0.11-0.8); Monocytes % 7.4 % (1.7-12.7); Neutrophils # 5.6 10*3/uL (1.4-7.4); Neutrophils % 76.1 % (38.7-73.9); Platelet Count 188 T/CUMM (130-400); Red Blood Count 3.78 MC/CUMM (3.8-5.5); White Blood Count 7.3 T/CUMM (4-12)
[2017-05-26 16:56] LABS: Blood Urea Nitrogen 12 MG/DL (7-18); Calcium 8.9 MG/DL (8.5-10.1); Glucose 265 MG/DL (74-106); Magnesium 1.8 MG/DL (1.8-2.4); Osmolality,Calculated 266.9 MOS/KG (273-304); Potassium 4.4 MMOL/L (3.5-5.1); Sodium 129 MMOL/L (136-145)
[2017-05-26] MEDS ORDERED: SODIUM CHLORIDE 0.9% 1,000 ML IV STA (17:06)
[2017-05-26 17:08] LABS: Apearance,Urine CLEAR (Clear); Bilirubin,Urine Negative (Negative); Blood, Urine Small mg/dL (Negative); Glucose,Urine (UA) 150 mg/dL (Negative); Ketones,Urine Negative (Negative); Nitrite,Urine Negative (Negative); Protein,Urine Negative; RBC,Urine 1 /HPF (0-4); Urine Color Straw (Yellow); Urine Specific Gravity 1.006 (1.001-1.035); Urine Urobilinogen < 2.0 EU/DL (0.2-1.0); WBC,Urine <1 /HPF (0-6)
[2017-05-26 17:15] LABS: Barbiturates Screen,Urine Positive (Negative); Benzodiazepines Screen,Urine Negative (Negative); Cannabinoid Screen,Urine Negative (Negative); Opiate Screen,Urine Positive (Negative); Phencyclidine Screen,Urine Negative (Negative)
--- NOTE | 2017-05-26 18:58 | CT Report ---
Exam: CT scan of brain without contrast Date: 05/26/2017 Indication: Altered level of consciousness Comparison: 09/10/2014 Patient's classification: Emergency department Technical: Images were obtained from the skull base to the vertex without the use of intravenous contrast. Dose reduction was performed with decreasing kv and mA and automated exposure Total DLP: 997.9 mGy*cm Findings: There is atrophy within the cerebellum. The brainstem is intact. The cerebral hemispheres reveal component of atrophy. Small vessel changes are present white matter region. The paranasal sinuses intact. Nasal septum is deviated towards the right anteriorly. Calvarium is intact. The mastoids are unremarkable Impression: 1. Small vessel ischemic changes mildly present with global atrophy without acute hemorrhage or infarction or mass effect present. PROCEDURE INTERPRETED AT [facility] DEPARTMENT OF RADIOLOGY Final Report Signed by: Dr. Chandana Salgado
--- NOTE | 2017-05-26 19:03 | Emergency Department Note ---
IPhilippe Gwan, am scribing for, and in the presence of, Trung Lion M.D. 16:35. IAyad Howard T, M.D., personally performed the services described in this documentation, ascribed by Lisa Paez in my presence, and it is both accurate and complete [id number] . Arrival - Arrival Chief Complaint: Altered Mental Status Stated Complaint: altered mental status ED Nursing Triage Note: pt to er 14 via ems coming from home with c/o having altered mental status onset today. home health was at pt home today to admit her to their services and she was altered and confused so they sent her here to get checked out. pt was discharged home yesterday from hospital from having a hip fx and surgery on 05/22/2017. Mode of Arrival: Stretcher Limitations: Altered Mental Status Source: Patient, Old Records Reviewed, RN Notes Reviewed - History of Present Illness HPI Narrative: Patient is a 66 y/o female who presents to the ED for further evaluation of AMS with an onset today. Patient appeared alerted and confused but was awake and alert. She is not accompanied by anyone. Home Health Nurse reports that she was present at pt's home to assist with admission into facility prior to surgery on hip. During this time, pt appeared confused and altered. This prompted the nurse to alert EMS and to have pt evaluated in ED. Nurse report that pt had surgery to repair right hip fracture 05/22/2017. Patient confirmed that she lives alone and that she has pain in her right hip consistent with prior surgery. She denies any other pain. Consistency: constant Severity: moderate Allergies/Adverse Reactions: Allergies Allergy/AdvReac Type Severity Reaction Status Date / Time Penicillins Allergy RASH Verified 05/26/17 15:46 Home Medications: Home Medications Medication Instructions Recorded Confirmed Type Amitriptyline HCl 100 mg PO BEDTIME 05/23/17 05/23/17 History Atorvastatin [Lipitor] 20 mg PO BEDTIME 05/23/17 05/23/17 History Butalb/Acetaminophen/Caffeine 1 tablet PO BID PRN 05/23/17 05/23/17 History [Esgic 50-325-40 mg Tablet] Fluoxetine HCl 20 mg PO DAILY 05/23/17 05/23/17 History Hydrocodone/Acetaminophen [[place] 1 tablet PO TID PRN 05/23/17 05/23/17 History 10-325 Tablet] Meloxicam 15 mg PO DAILY 05/23/17 05/23/17 History Nitroglycerin Sl Tab [Nitrostat] 1 tablet SL DIRECTED 05/23/17 05/23/17 History Pregabalin [Lyrica] 1 capsule PO BID 05/23/17 05/23/17 History Trazodone HCl 2 tablet PO BEDTIME 05/23/17 05/23/17 History amLODIPine [Norvasc] 5 mg PO BEDTIME 05/23/17 05/23/17 History buPROPion HCl [Bupropion HCl] 100 mg PO BID 05/23/17 05/23/17 History hydrOXYzine HCL TAB [Atarax Tab] 25 mg PO BID PRN 05/23/17 05/23/17 History hydroCHLOROthiazide 12.5 mg PO BID 05/23/17 05/23/17 History [Hydrochlorothiazide] Apixaban [Eliquis] 2.5 mg PO BID #60 tablet 05/25/17 Rx Celecoxib [Celebrex] 200 mg PO DAILY #60 capsule 05/25/17 Rx HYDROcodone/ACETAMIN 7.5-325 2 tablet PO Q4H PRN #40 tablet 05/25/17 Rx [[place] 7.5-325] Nicotine 21 mg/24 Hr Patch 1 patch TRANSDERM DAILY PRN #30 05/25/17 Rx [Nicoderm CQ 21 mg/24 hr Patch] patch Valsartan [Diovan] 320 mg PO DAILY #30 tablet 05/25/17 Rx Review of System - Review of System 12 point system: reviewed and no additional remarkable complaints except as stated - Review of System Constitutional: Absent: chills, fever Eyes: Absent: discharge Head/Ears/Nose/Throat: Absent: earache Respiratory: Absent: cough Cardiovascular: Absent: chest pain, palpitations Gastrointestinal: Absent: abdominal pain, nausea, vomiting, diarrhea Genitourinary female: Absent: dysuria, discharge Musculoskeletal: Present: as per HPI, other (right hip pain ). Absent: arm pain , back pain, leg pain, neck pain Skin: Absent: rash, lesions Neurological: Absent: headache, weakness Medical,Surgical,& Family Hx - Medical History Cardio: History of: CAD (History of LAD and RCA stent in 2012), Hypertension Neurology: No history of: Seizures Endocrine: History of: Diabetes Mellitus (IDDM) Respiratory: History of: COPD - Surgical History Cardiac Surgeries: Sugical HX of: Cardiac Catheterization Abdominal Surgeries: Patient denies: Abdominal Surgery - Family History Family History: Reports;: Family Hypertension - Social History Smoking Status: Unknown if ever smoked Frequency of Alcohol Use: Unknown Type of Drug Use: Unknown Exam Vital Signs: Vital Signs Temperature 98.2 F 05/26/17 15:41 Pulse Rate 90 05/26/17 15:41 Respiratory Rate 18 05/26/17 15:49 Blood Pressure 161/92 05/26/17 15:41 O2 Sat by Pulse Oximetry 90 L 05/26/17 15:41 - General General appearance: alert, in no apparent distress - Head Head exam: Present: atraumatic, normocephalic - Eye Eye exam: Present: normal appearance, PERRL, EOMI - ENT ENT exam: Present: normal oropharynx, mucous membranes dry - Neck Neck exam: Present: full ROM, trachea midline. Absent: tenderness - Chest Chest inspection: Present: symmetric chest wall rise. Absent: tenderness - Respiratory Respiratory exam: Present: normal lung sounds bilaterally. Absent: respiratory distress - Cardiovascular Cardiovascular exam: Present: regular rate, normal rhythm, normal heart sounds. Absent: murmur - Abdominal Exam Abdominal exam: Present: soft, normal bowel sounds. Absent: distention, tenderness - Extremities Exam Extremities exam: Present: other (patient has bandage in place consistent with right hip surgery; no evidence of non-healing or unkept area; no edema noted to area ) - Back Exam Back exam: Present: full ROM. Absent: tenderness - Neurological Exam Neurological exam: Present: alert, CN II-XII intact. Absent: motor sensory deficit - Skin Skin exam: Present: warm, dry, intact, normal color Course Course Narrative: Medical decision making: Patient appears comfortable however is confused and quite no acute distress will recommend admission to the hospital service for observation and continued evaluation and treatment. No definite evidence of acute infectious or neurologic process, perhaps her status is due to pain medications or her recent hospital stay and surgery. Results - Labs CBC & BMP: 05/26/17 15:49 05/26/17 15:49 Lab Results: I have reviewed the patients labs Disposition Clinical Impression: Altered mental status Case discussed with: patient Disposition: Still a Patient Condition: Stable Time of Disposition: 19:03
--- NOTE | 2017-05-26 19:22 | Hospitalist History & Physical ---
Assessment and Plan (1) Altered mental status Status: Acute Assessment and plan: The patient appears to have metabolic encephalopathy. the patient has delirium which is likely related to multiple neuroactive medications on her home medicine list including narcotic and tricyclic antidepressants. The patient will be admitted for observation and weaning neuroactive medications. We will reevaluate tomorrow and consider adding back medications as the mental status improves. We are going to try to avoid giving sedatives tonight. Current Visit: Yes Qualifiers: Altered mental status type: delirium Qualified Code(s): R41.0 - Disorientation, unspecified (2) Hyponatremia Status: Acute Current Visit: Yes (3) Hypertension Status: Chronic Current Visit: Yes (4) History of fracture of left hip Status: Chronic Current Visit: Yes History of Present Illness Chief complaint: Confusion History of present illness: Ms. Hernandez is a 66 year old female dismissed from hospital yesterday after treatment for hip fracture. The patient is on multiple neuroactive medications and comes to the hospital today with confusion. She was evaluated by home health service and referred for hospitalization. The patient does not complain of shortness of breath or palpitations. The patient does not describe angina. The patient denies fever, chills. The patient does have some discomfort in the left hip where she had surgery. Home Medications Medication Instructions Recorded Confirmed Type Amitriptyline HCl 100 mg PO BEDTIME 05/23/17 05/23/17 History Atorvastatin [Lipitor] 20 mg PO BEDTIME 05/23/17 05/23/17 History Butalb/Acetaminophen/Caffeine 1 tablet PO BID PRN 05/23/17 05/23/17 History [Esgic 50-325-40 mg Tablet] Fluoxetine HCl 20 mg PO DAILY 05/23/17 05/23/17 History Hydrocodone/Acetaminophen [[place] 1 tablet PO TID PRN 05/23/17 05/23/17 History 10-325 Tablet] Meloxicam 15 mg PO DAILY 05/23/17 05/23/17 History Nitroglycerin Sl Tab [Nitrostat] 1 tablet SL DIRECTED 05/23/17 05/23/17 History Pregabalin [Lyrica] 1 capsule PO BID 05/23/17 05/23/17 History Trazodone HCl 2 tablet PO BEDTIME 05/23/17 05/23/17 History amLODIPine [Norvasc] 5 mg PO BEDTIME 05/23/17 05/23/17 History buPROPion HCl [Bupropion HCl] 100 mg PO BID 05/23/17 05/23/17 History hydrOXYzine HCL TAB [Atarax Tab] 25 mg PO BID PRN 05/23/17 05/23/17 History hydroCHLOROthiazide 12.5 mg PO BID 05/23/17 05/23/17 History [Hydrochlorothiazide] Apixaban [Eliquis] 2.5 mg PO BID #60 tablet 05/25/17 Rx Celecoxib [Celebrex] 200 mg PO DAILY #60 capsule 05/25/17 Rx HYDROcodone/ACETAMIN 7.5-325 2 tablet PO Q4H PRN #40 tablet 05/25/17 Rx [[place] 7.5-325] Nicotine 21 mg/24 Hr Patch 1 patch TRANSDERM DAILY PRN #30 05/25/17 Rx [Nicoderm CQ 21 mg/24 hr Patch] patch Valsartan [Diovan] 320 mg PO DAILY #30 tablet 05/25/17 Rx Allergies Allergy/AdvReac Type Severity Reaction Status Date / Time Penicillins Allergy RASH Verified 05/26/17 15:46 Medical,Surgical,& Family Hx - Medical History Cardio: History of: CAD (History of LAD and RCA stent in 2012), Hypertension Neurology: No history of: Seizures Endocrine: History of: Diabetes Mellitus (IDDM) Respiratory: History of: COPD - Surgical History Cardiac Surgeries: Sugical HX of: Cardiac Catheterization Abdominal Surgeries: Patient denies: Abdominal Surgery - Family History Family History: Reports;: Family Hypertension - Social History Smoking Status: Unknown if ever smoked Frequency of Alcohol Use: Unknown Type of Drug Use: Unknown Marital Status: Lives With:: Spouse Functional capacity: uses cane/walker 12 point system: reviewed and no additional remarkable complaints except as stated Exam - Constitutional Vitals: Period Temp Pulse Resp BP Sys/Barrett Pulse Ox Last 24 Hr 98.2 F-98.2 F 90-90 17-18 161-161/92-92 90 Exam: Constitutional System: Moderate distress on account of confusion. No tremulousness. Head: Normocephalic, atraumatic. Ears, Nose and Throat System: No evidence of Otitis or Mastoiditis. No epistaxis or discharge Eyes System: Pupils equal, round, and reactive. Extraocular muscles intact. Neck: Supple, without adenopathy, No jugular venous distention. No thyromegaly , neck mass, or prior surgery apparent. Respiratory System: Chest clear to auscultation. Cardiovascular System: Heart with regular rate and rhythm. No murmur. GI System: Abdomen soft, nontender. Normo active bowel sounds present. Musculoskeletal System: limbs with no pedal edema. Left hip fracture surgery with healing wound. Neurological System: No discernable sensory deficit. No aphasia Psychiatric System: Conversation is confused Results - Labs CBC & BMP: 05/26/17 15:49 05/26/17 15:49 Lab Results: I have reviewed the past 24 hour labs
[2017-05-26] MEDS ORDERED: SODIUM CHLORIDE 0.9% 1,000 ML IV SCH (20:35)
[2017-05-26] MEDS ORDERED: GLUCAGON 1 MG VIAL IM PRN (20:35)
[2017-05-26] MEDS ORDERED: DEXTROSE 50% 25 GM/50 ML VIAL IV PRN (20:35)
[2017-05-26] MEDS ORDERED: ONDANSETRON 4 MG/2 ML VIAL IV PRN (20:35)
[2017-05-26] MEDS ORDERED: NITROGLYCERIN SL 0.4 MG TABLET SL PRN (20:35)
[2017-05-26] MEDS ORDERED: amLODIPine 5 MG TABLET PO SCH (21:00)
[2017-05-26] MEDS: APIXABAN 2.5 MG TABLET PO SCH (21:02)
[2017-05-26] MEDS: INSULIN LISPRO 100 UNIT/ML SUBCUT SCH (21:03)
[2017-05-27 05:32] LABS: Basophils % 0.3 % (0.0-0.8); Eosinophils # 0.1 10*3/uL (0.0-0.87); Eosinophils % 1.5 % (0.00-10.9); Hematocrit 30.4 VOL% (35.7-47.0); Hemoglobin 10.6 GM/DL (12.0-16.0); Immature Granulocytes % 0.3 %; Immature Granulocytes Absolute 0.02 #; Lymphocytes # 1.2 10*3/uL (1.4-4.0); Lymphocytes % 20.6 % (21.3-54.2); Mean Corpuscular HGB Conc 34.9 GM/DL (32-36); Mean Corpuscular Hemoglobin 31 PG (27-34); Mean Corpuscular Volume 89.4 FL (87-102); Mean Platelet Volume 9.9 FL (9.6-12.0); Monocytes # 0.7 10*3/uL (0.11-0.8); Monocytes % 11.5 % (1.7-12.7); Neutrophils % 65.8 % (38.7-73.9); Platelet Count 182 T/CUMM (130-400)
[2017-05-27 06:01] LABS: Blood Urea Nitrogen 8 MG/DL (7-18); Calcium 8.9 MG/DL (8.5-10.1); Glucose 187 MG/DL (74-106); Magnesium 1.5 MG/DL (1.8-2.4); Osmolality,Calculated 266.5 MOS/KG (273-304); Potassium 3.7 MMOL/L (3.5-5.1); Sodium 132 MMOL/L (136-145); Troponin I Only < 0.015 NG/ML (0.00-0.045)
[2017-05-27 08:17] VITALS: BP 149/84
[2017-05-27] MEDS: APIXABAN 2.5 MG TABLET PO SCH (08:36)
[2017-05-27] MEDS: INSULIN LISPRO 100 UNIT/ML SUBCUT SCH (08:36)
[2017-05-27] MEDS ORDERED: VALSARTAN 160 MG TABLET PO SCH (09:00)
[2017-05-27] MEDS ORDERED: PANTOPRAZOLE 40 MG TABLET PO SCH (09:00)
--- NOTE | 2017-05-27 09:09 | Discharge Summary ---
Hospital Course - Hospital Course Hospital Course: The patient was admitted to the hospital with delirium. She had metabolic encephalopathy most likely on account of multiple sedatives that she is taking at home including benzodiazepine, tricyclic antidepressant, opioids, and centrally acting agent which is Lyrica. The patient's medications were simplified overnight and her mental state sensorium has cleared. The patient is ready for discharge home. I reconciled the patient's medication and reduced her sedatives I am hoping that this will improve her mental status at home. She will follow-up with her usual primary care physician. On the date of discharge, chest is clear and abdomen soft. Heart has regular rate and rhythm. The patient had tobacco evaluation screening and is seen to be a previous cigarette smoker who has recently quit smoking and change to nicotine patch. The patient is counseled for 4 minutes concerning the need to continue abstinence from tobacco. Total time required for discharge arrangements was 32 minutes. - Time spent with patient Time with patient DS: Greater than 30 minutes Diagnosis - Discharge Diagnosis (1) Altered mental status Status: Resolved (2) Hyponatremia Status: Resolved (3) Hypertension Status: Chronic (4) History of fracture of left hip Status: Chronic Discharge Plan - Discharge Data Disposition: Disch To Home/Self Care Condition at Discharge: Stable Discharge Diet: advance to your usual diet Activity: resume usual activities as tolerated - Discharge Medications Continue Nitroglycerin Sl Tab [Nitrostat] 0.4 mg SL DIRECTED PRN PRN Reason: Chest Pain hydroCHLOROthiazide [Hydrochlorothiazide] 12.5 mg PO BID amLODIPine [Norvasc] 5 mg PO BEDTIME Nicotine 21 mg/24 Hr Patch [Nicoderm CQ 21 mg/24 hr Patch] 1 patch TRANSDERM DAILY PRN #30 patch PRN Reason: Nicotine Withdrawal Valsartan [Diovan] 320 mg PO DAILY #30 tablet Hydrocodone/Acetaminophen [Browning 10-325 Tablet] 10 - 325 mg PO TID PRN PRN Reason: Pain Atorvastatin [Lipitor] 20 mg PO BEDTIME Amitriptyline HCl 100 mg PO BEDTIME Apixaban [Eliquis] 2.5 mg PO BID #60 tablet Celecoxib [Celebrex] 200 mg PO DAILY #60 capsule Changed Trazodone HCl 100 mg PO BEDTIME #0 Discontinued hydrOXYzine HCL TAB [Atarax Tab] 25 mg PO BID PRN PRN Reason: Itching buPROPion HCl [Bupropion HCl] 100 mg PO BID Pregabalin [Lyrica] 300 mg PO BID Meloxicam 15 mg PO DAILY Butalb/Acetaminophen/Caffeine [Esgic 50-325-40 mg Tablet] 1 tablet PO BID PRN PRN Reason: Headache Fluoxetine HCl 20 mg PO DAILY Fluoxetine HCl 20 mg PO DAILY - Follow Up or Referral - Forms/Instructions Exam - Constitutional Vitals: Period Temp Pulse Resp BP Sys/Barrett Pulse Ox Last 24 Hr 97.1 F-98.6 F 76-90 14-20 130-161/76-92 90-99 Discharge Results Labs on day of discharge: Labs from last 24 hours 05/27/17 05/27/17 05/27/17 08:14 04:56 04:56 WBC 6.0 RBC 3.40 L Hgb 10.6 L Hct 30.4 L MCV 89.4 MCH 31 MCHC 34.9 RDW 13.0 Plt Count 182 MPV 9.9 Neut % (Auto) 65.8 Lymph % (Auto) 20.6 L [place] % (Auto) 11.5 Eos % (Auto) 1.5 Baso % (Auto) 0.3 Neut # (Auto) 4.0 Lymph # (Auto) 1.2 L [place] # (Auto) 0.7 Eos # (Auto) 0.1 Baso # (Auto) 0.0 Immature Gran % 0.3 Nucleated RBC % 0.0 Immature Gran # 0.02 Nucleated RBCs # 0.00 Sodium 132 L Potassium 3.7 Chloride 95 L Carbon Dioxide 29 Anion Gap 11.7 BUN 8 Creatinine 0.50 L GFR Calculation 96 BUN/Creatinine Ratio 16.00 Glucose 187 H POC Glucose 206 H Calculated Osmolality 266.5 L Calcium 8.9 Magnesium 1.5 L Total Creatine Kinase 538 H D Troponin I < 0.015 Urine Color Urine Appearance Urine pH Ur Specific [place] Urine Protein Urine Glucose (UA) Urine Ketones Urine Blood Urine Nitrate Urine Bilirubin Urine Urobilinogen Urine Leukocytes Urine RBC Urine WBC Urine Yeast (Budding) Ur Culture Indicated? Urine Opiates Screen Ur Barbiturates Screen Ur Phencyclidine Scrn U Amphetamine/Methamph U Benzodiazepines Scrn U Cocaine Metab Screen U Cannabinoids Screen Serum Alcohol 05/26/17 05/26/17 05/26/17 20:46 16:58 16:58 WBC RBC Hgb Hct MCV MCH MCHC RDW Plt Count MPV Neut % (Auto) Lymph % (Auto) Briscoe % (Auto) Eos % (Auto) Baso % (Auto) Neut # (Auto) Lymph # (Auto) [place]isco[place] # (Auto) Eos # (Auto) Baso # (Auto) Immature Gran % Nucleated RBC % Immature Gran # Nucleated RBCs # Sodium Potassium Chloride Carbon Dioxide Anion Gap BUN Creatinine GFR Calculation BUN/Creatinine Ratio Glucose POC Glucose 269 H Calculated Osmolality Calcium Magnesium Total Creatine Kinase Troponin I Urine Color Straw Urine Appearance Clear Urine pH 7.0 Ur Specific [place] 1.006 Urine Protein Negative Urine Glucose (UA) 150 Urine Ketones Negative Urine Blood Small Urine Nitrate Negative Urine Bilirubin Negative Urine Urobilinogen < 2.0 H Urine Leukocytes Negative Urine RBC 1 Urine WBC <1 Urine Yeast (Budding) Few Ur Culture Indicated? Not indicated Urine Opiates Screen Positive H Ur Barbiturates Screen Positive H Ur Phencyclidine Scrn Negative U Amphetamine/Methamph Negative U Benzodiazepines Scrn Negative U Cocaine Metab Screen Negative U Cannabinoids Screen Negative Serum Alcohol 05/26/17 05/26/17 15:49 15:49 WBC 7.3 RBC 3.78 L Hgb 11.9 L Hct 33.8 L MCV 89.4 MCH 32 MCHC 35.2 RDW 13.0 Plt Count 188 D MPV 10.3 Neut % (Auto) 76.1 H Lymph % (Auto) 15.8 L [place]isco[place] % (Auto) 7.4 Eos % (Auto) 0.1 Baso % (Auto) 0.1 Neut # (Auto) 5.6 Lymph # (Auto) 1.2 L [place] # (Auto) 0.5 Eos # (Auto) 0.0 Baso # (Auto) 0.0 Immature Gran % 0.5 Nucleated RBC % 0.0 Immature Gran # 0.04 Nucleated RBCs # 0.00 Sodium 129 L Potassium 4.4 Chloride 91 L Carbon Dioxide 30 Anion Gap 12.4 BUN 12 Creatinine 0.70 GFR Calculation 89 BUN/Creatinine Ratio 17.00 Glucose 265 H POC Glucose Calculated Osmolality 266.9 L Calcium 8.9 Magnesium 1.8 Total Creatine Kinase Troponin I Urine Color Urine Appearance Urine pH Ur Specific [place] Urine Protein Urine Glucose (UA) Urine Ketones Urine Blood Urine Nitrate Urine Bilirubin Urine Urobilinogen Urine Leukocytes Urine RBC Urine WBC Urine Yeast (Budding) Ur Culture Indicated? Urine Opiates Screen Ur Barbiturates Screen Ur Phencyclidine Scrn U Amphetamine/Methamph U Benzodiazepines Scrn U Cocaine Metab Screen U Cannabinoids Screen Serum Alcohol < 15 L DS: Provider Date of admission: 05/26/17 19:07 Primary care physician: . No PCP Attending physician on admission: Wyatt Lucero MD Discharging clinician: Emanuel Goodwin MD
== END 2017-05-27 11:10 | disposition home or self-care (01) ==
LOC: EDUNIT# → EDBD → N.ED 15:40 → N.EDINP 15:40 → SUATTDRO 19:07 → N.3E 20:00
PROVIDERS: ADMIT Internal Medicine; ATTEND Internal Medicine

== ENCOUNTER 2017-07-05 16:54 | Inpatient (IN) ==
[2017-07-05] MEDS ORDERED: INSULIN REGULAR 100 UNIT/ML SUBCUT STA (17:39)
[2017-07-05] MEDS ORDERED: SODIUM CHLORIDE 0.9% 1,000 ML IV STA (17:39)
--- NOTE | 2017-07-05 17:42 | Emergency Department Note ---
Bolivar Alaniz Manpreet, am scribing for, and in the presence of, Gian Steiner MD 17:41. Jatin Alaniz Phillip K, MD, personally performed the services described in this documentation, ascribed by Abner Lutz in my presence, and it is both accurate and complete [id number] . Arrival - Arrival ED Nursing Triage Note: Pt was called per home health nurse and told to come to ER for elevated blood sugar and elevated WBC - labs were collected per home health this am - glucose reading greater than 500 at time of triage Mode of Arrival: Wheelchair Limitations: No Limitations Source: Patient - History of Present Illness Onset (ago): hour(s) Consistency: constant Severity: moderate Severity scale (1-10): 3 Date of Last Menstrual Period: hyster <Gian Steiner - Last Filed: 07/05/17 17:42> <Vijay Marin - Last Filed: 07/05/17 19:05> - Arrival Chief Complaint: Non-Specific Stated Complaint: Sugar high, white blood count low,dehydrated Time Seen by Provider: 07/05/17 17:27 - History of Present Illness HPI Narrative: Pt is a 67 y/o female, with PMHx of HTN, CAD, IDDM, and COPD, who presents to the ED after being told by her home health nurse to do so. Pt had elevated blood sugar and WBC's. Pt takes Humalog 25 mg in the AM which she did not take this AM. Pt was also being treated for a UTI by Dr. Fernandez in [place], [place]. Pt had bouts of confusion the previous night and pt reports of increased urinary frequency. Pt states she only urinates a small amount she goes. Pt denies N/V/D, cough, fever, or chills. Pt reports of smoking cigarettes. No other pains/complaints reported to the ED. (Abner Lutz) Pt is a 67 y/o female, with PMHx of HTN, CAD, IDDM, and COPD, who presents to the ED after being told by her home health nurse to do so. Pt had elevated blood sugar and WBC's. Pt takes Humalog 25 mg in the AM which she did not take this AM. Pt was also being treated for a UTI by Dr. Fernandez in [place], [place]. Pt had bouts of confusion the previous night and pt reports of increased urinary frequency. Pt states she only urinates a small amount she goes. Pt denies N/V/D, cough, fever, or chills. Pt reports of smoking cigarettes. No other pains/complaints reported to the ED. (Gian Steiner) Allergies/Adverse Reactions: Allergies Allergy/AdvReac Type Severity Reaction Status Date / Time Penicillins Allergy RASH Verified 05/26/17 15:46 Home Medications: Home Medications Medication Instructions Recorded Confirmed Type Amitriptyline HCl 100 mg PO BEDTIME 05/23/17 07/05/17 History Atorvastatin [Lipitor] 20 mg PO BEDTIME 05/23/17 07/05/17 History Nitroglycerin Sl Tab [Nitrostat] 0.4 mg SL DIRECTED PRN 05/23/17 07/05/17 History amLODIPine [Norvasc] 5 mg PO BEDTIME 05/23/17 07/05/17 History Valsartan [Diovan] 320 mg PO DAILY #30 tablet 05/25/17 07/05/17 Rx Trazodone HCl 100 mg PO BEDTIME #0 05/27/17 07/05/17 Rx Aspirin EC Tab 325 mg PO DAILY 07/05/17 07/05/17 History Butalbital/Acet/Caff 50-325-40 1 tablet PO BID PRN 07/05/17 07/05/17 History [Fioricet 50-325-40 mg Tablet] Cholecalciferol (Vitamin D3) 50,000 unit PO Q7D 07/05/17 07/05/17 History [Vitamin D3] Fluoxetine HCl [Fluoxetine HCl] 20 mg PO DAILY 07/05/17 07/05/17 History Hydrocodone/Acetaminophen 1 tablet PO Q6H PRN 07/05/17 07/05/17 History [Hydrocodon-Acetaminophn 10-325] Insulin Glargine,Hum.rec.anlog 25 unit SUBCUT BEDTIME 07/05/17 07/05/17 History [Lantus SoloStar] Insulin Glargine,Hum.rec.anlog 45 unit SUBCUT QAM 07/05/17 07/05/17 History [Lantus SoloStar] Polyethylene Glycol Powder 17 gm PO DAILY 07/05/17 07/05/17 History [Miralax] Pregabalin [Lyrica] 300 mg PO BID 07/05/17 07/05/17 History Review of System - Review of System 12 point system: reviewed and no additional remarkable complaints except as stated - Review of System Constitutional: Present: other (Elevated glucose, dizzy). Absent: chills, diaphoresis, fever Respiratory: Absent: cough, respiratory distress, wheezing Cardiovascular: Absent: chest pain, dyspnea on exertion Gastrointestinal: Absent: nausea, vomiting, diarrhea Genitourinary female: Present: frequency. Absent: dysuria Musculoskeletal: Absent: arm pain, back pain, lower back pain, leg pain, neck pain <Gian Steiner - Last Filed: 07/05/17 17:42> Medical,Surgical,& Family Hx - Medical History Cardio: History of: CAD (History of LAD and RCA stent in 2012), Hypertension Neurology: No history of: Seizures Endocrine: History of: Diabetes Mellitus (IDDM) Respiratory: History of: COPD - Surgical History Cardiac Surgeries: Sugical HX of: Cardiac Catheterization Abdominal Surgeries: Patient denies: Abdominal Surgery Orthopedic Surgeries: Surgical HX of;: Orthopedic Surgery (plate and screw on L femur on 05/15) - Family History Family History: Reports;: Family Diabetes (sister, brother), Family Hypertension - Social History Smoking Status: Current every day smoker Frequency of Alcohol Use: None Type of Drug Use: None <Gian Steiner - Last Filed: 07/05/17 17:42> Exam - General General appearance: alert, in no apparent distress - Head Head exam: Present: atraumatic, normocephalic, normal inspection - Eye Eye exam: Present: normal appearance, PERRL, EOMI - ENT ENT exam: Present: normal exam, normal oropharynx, mucous membranes moist, TM's normal bilaterally - Neck Neck exam: Present: normal inspection, full ROM, trachea midline. Absent: tenderness, thyromegaly - Chest Chest inspection: Present: normal inspection, symmetric chest wall rise. Absent : tenderness - Respiratory Respiratory exam: Present: wheezes (Expiratory wheezes). Absent: normal lung sounds bilaterally, respiratory distress - Cardiovascular Cardiovascular exam: Present: normal rhythm, tachycardia, normal heart sounds. Absent: murmur, rubs, gallop - Abdominal Exam Abdominal exam: Present: soft, normal bowel sounds. Absent: distention, tenderness, guarding, rebound, rigidity - Extremities Exam Extremities exam: Present: normal inspection, full ROM. Absent: tenderness - Back Exam Back exam: Present: normal inspection, full ROM. Absent: tenderness - Neurological Exam Neurological exam: Present: alert, oriented X3, CN II-XII intact, reflexes normal - Psychiatric Psychiatric exam: Present: normal affect, normal mood - Skin Skin exam: Present: warm, dry, intact, normal color. Absent: pallor <Gian Steiner - Last Filed: 07/05/17 17:42> Vital Signs: Vital Signs Temperature 98.4 F 07/05/17 17:06 Pulse Rate 87 07/05/17 18:45 Respiratory Rate 17 07/05/17 18:45 Blood Pressure 128/77 07/05/17 18:45 O2 Sat by Pulse Oximetry 99 07/05/17 18:45 Course <Gian Steiner - Last Filed: 07/05/17 17:42> - Consultations Time: 19:03 <Vijay Marin - Last Filed: 07/05/17 19:05> - Consultations Consultation #1: Hospitalist will admit patient (Vijay Marin) Results - Labs CBC & BMP: 07/05/17 17:25 07/05/17 17:25 Lab Results: I have reviewed the patients labs <Vijay Marin - Last Filed: 07/05/17 19:05> Critical Care Time Critical Care Time: Yes Total Critical Care Time: 60 <Vijay Marin - Last Filed: 07/05/17 19:05> Disposition <Gian Steiner - Last Filed: 07/05/17 17:42> Case discussed with: patient, patient's family Time of Disposition: 19:05 <Vijay Marin - Last Filed: 07/05/17 19:05> Clinical Impression: Altered mental status, Insulin dependent diabetes mellitus, History of coronary artery disease, COPD (chronic obstructive pulmonary disease), Hyponatremia, Sepsis, Hyperglycemia nonketotic hyperosmolar Disposition: Still a Patient Condition: Guarded
[2017-07-05 17:51] LABS: Basophils # 0.1 10*3/uL (0.0-0.2); Basophils % 0.3 % (0.0-0.8); Eosinophils # 0.1 10*3/uL (0.0-0.87); Eosinophils % 0.8 % (0.00-10.9); Hematocrit 38.2 VOL% (35.7-47.0); Hemoglobin 13.7 GM/DL (12.0-16.0); Immature Granulocytes % 0.9 %; Immature Granulocytes Absolute 0.15 #; Lymphocytes # 2.7 10*3/uL (1.4-4.0); Lymphocytes % 16.1 % (21.3-54.2); Mean Corpuscular HGB Conc 35.9 GM/DL (32-36); Mean Corpuscular Hemoglobin 32 PG (27-34); Mean Corpuscular Volume 88.4 FL (87-102); Monocytes # 1.2 10*3/uL (0.11-0.8); Neutrophils # 12.5 10*3/uL (1.4-7.4); Neutrophils % 74.9 % (38.7-73.9); Platelet Count 278 T/CUMM (130-400); Red Blood Count 4.32 MC/CUMM (3.8-5.5); Red Cell Distribution Width 13.1 % (9.3-17.3); White Blood Count 16.7 T/CUMM (4-12)
[2017-07-05] MEDS ORDERED: INSULIN NPH 100 UNIT/ML SUBCUT ONE (18:00)
[2017-07-05 18:06] LABS: Apearance,Urine Slightly Hazy (Clear); Bilirubin,Urine Negative (Negative); Blood, Urine Small mg/dL (Negative); Glucose,Urine (UA) >=500 mg/dL (Negative); Ketones,Urine Negative (Negative); Nitrite,Urine Negative (Negative); Protein,Urine Negative; RBC,Urine 4 /HPF (0-4); Urine Color Yellow (Yellow); Urine Specific Gravity 1.014 (1.001-1.035); Urine Urobilinogen < 2.0 EU/DL (0.2-1.0); WBC,Urine 16 /HPF (0-6)
[2017-07-05] MEDS ORDERED: INSULIN REGULAR 100 UNIT/ML ONE (18:06)
[2017-07-05 18:14] LABS: Albumin 3.6 G/DL (3.4-5.0); Bilirubin,Total 0.4 MG/DL (0.2-1.0); Calcium 8.6 MG/DL (8.5-10.1); Magnesium 1.9 MG/DL (1.8-2.4); Osmolality,Calculated 288.3 MOS/KG (273-304); Potassium 4.9 MMOL/L (3.5-5.1); Total Protein 6.9 G/DL (6.4-8.3)
--- NOTE | 2017-07-05 18:31 | XRay Report ---
XR chest 1V portable Indication: Shortness of breath. Chest one view: Comparison 05/22/2017. Decreased enlargement of the hilar regions noted. There is continued coarsened interstitial markings of the lungs with interstitial scarring centrally as well as at the right apex. No new infiltrates. Heart size and mediastinal contour are now normal. Impression: Resolution of mild cardiomegaly and decreased enlargement of the hilar regions since 05/22/2017. Chronic interstitial scarring as described. PROCEDURE INTERPRETED AT [facility] DEPARTMENT OF RADIOLOGY Final Report Signed by: Wyatt Kay M.D.
[2017-07-05 18:37] LABS: ABG Base Excess -1.6 MMOL/L (-2.5-2.5); ABG HCO3 22.7 MMOL/L (20-26); ABG Oxygen Saturation 88.3 % (95-100); ABG PCO2 37.3 MM HG (35-48); ABG PH 7.403 (7.35-7.45); ABG PO2 48.2 MM HG (80-95); ABG TCO2 23.9 MMOL/L (23-27)
[2017-07-05] MEDS ORDERED: LEVOFLOXACIN INJ 500 MG in PREMIX 1 EACH IV STA (19:01)
[2017-07-05] MEDS ORDERED: SODIUM CHLORIDE 0.9% 1,000 ML IV ONE (19:02)
[2017-07-05] MEDS ORDERED: LEVOFLOXACIN INJ 100 ML IV ONE (19:24)
--- NOTE | 2017-07-05 19:44 | Hospitalist History & Physical ---
Assessment and Plan (1) Insulin dependent diabetes mellitus Status: Acute Assessment and plan: Admit to hospitalist services. BG was 723. She is not in DKA. IV NS at 125 ml/hr. Accuchecks ACHS. SSI. Lantus 45 units SQ QAM. Lanuts 25 units SQ QHS HA1C. Recheck BMP in AM. Current Visit: Yes (2) Acute encephalopathy Status: Resolved Assessment and plan: Confusion and fall reported but upon examination there was no evidence of acute confusion at this time. IV NS @ 125 ml/hr. Continue Levaquin given in ED. Continue to monitor. Current Visit: Yes (3) Hyponatremia Status: Acute Assessment and plan: IV NS @ 125 ml/hr. Repeat BMP in AM. Current Visit: Yes (4) Urinary tract infection Status: Acute Assessment and plan: IV NS at 125 ml/hr. Continue Levaquin started in ED. Repeat CBC in AM. Current Visit: Yes (5) Hypertension Status: Chronic Assessment and plan: Continue home medications. Current Visit: No History of Present Illness Chief complaint: AMS History of present illness: Ms. Hernandez is a 67 year old female with a history of HTN, IDDM, cardiac stent placement, and most recently ORIF of right hip. She presented to the ED this afternoon with complaints of confusion and two falls since last night. She denies pain or known injury from the falls. Her spouse reports that he contacted the home health nurse who came and did some blood work which showed elevated BG and WBC. In the ED, WBCs were found to be 16.7 and BG was 723. Hospitalist services were contacted for further evaluation and treatment, and the patient will be admitted to a monitored bed. Home Medications Medication Instructions Recorded Confirmed Type Amitriptyline HCl 100 mg PO BEDTIME 05/23/17 07/05/17 History Atorvastatin [Lipitor] 20 mg PO BEDTIME 05/23/17 07/05/17 History Nitroglycerin Sl Tab [Nitrostat] 0.4 mg SL DIRECTED PRN 05/23/17 07/05/17 History amLODIPine [Norvasc] 5 mg PO BEDTIME 05/23/17 07/05/17 History Valsartan [Diovan] 320 mg PO DAILY #30 tablet 05/25/17 07/05/17 Rx Trazodone HCl 100 mg PO BEDTIME #0 05/27/17 07/05/17 Rx Aspirin EC Tab 325 mg PO DAILY 07/05/17 07/05/17 History Butalbital/Acet/Caff 50-325-40 1 tablet PO BID PRN 07/05/17 07/05/17 History [Fioricet 50-325-40 mg Tablet] Cholecalciferol (Vitamin D3) 50,000 unit PO Q7D 07/05/17 07/05/17 History [Vitamin D3] Fluoxetine HCl [Fluoxetine HCl] 20 mg PO DAILY 07/05/17 07/05/17 History Hydrocodone/Acetaminophen 1 tablet PO Q6H PRN 07/05/17 07/05/17 History [Hydrocodon-Acetaminophn 10-325] Insulin Glargine,Hum.rec.anlog 25 unit SUBCUT BEDTIME 07/05/17 07/05/17 History [Lantus SoloStar] Insulin Glargine,Hum.rec.anlog 45 unit SUBCUT QAM 07/05/17 07/05/17 History [Lantus SoloStar] Polyethylene Glycol Powder 17 gm PO DAILY 07/05/17 07/05/17 History [Miralax] Pregabalin [Lyrica] 300 mg PO BID 07/05/17 07/05/17 History Allergies Allergy/AdvReac Type Severity Reaction Status Date / Time Penicillins Allergy RASH Verified 05/26/17 15:46 Medical,Surgical,& Family Hx - Medical History Cardio: History of: CAD (History of LAD and RCA stent in 2012), Hypertension Neurology: No history of: Seizures Endocrine: History of: Diabetes Mellitus (IDDM) Respiratory: History of: COPD - Surgical History Cardiac Surgeries: Sugical HX of: Cardiac Catheterization Abdominal Surgeries: Patient denies: Abdominal Surgery Orthopedic Surgeries: Surgical HX of;: Orthopedic Surgery (plate and screw on L femur on 05/15) - Family History Family History: Reports;: Family Diabetes (sister, brother), Family Hypertension - Social History Smoking Status: Current every day smoker Have you smoked in the last 12 months: Yes Time spent discussing smoking cessation with patient: 3 to 10 minutes Frequency of Alcohol Use: None Type of Drug Use: None Marital Status: Lives With:: Spouse Functional capacity: independent ambulation 12 point system: reviewed and no additional remarkable complaints except as stated - Constitutional Constitutional: Absent: chills, fever(s) - Cardiovascular Cardiovascular: Absent: dyspnea, edema, orthopnea, palpitations - Respiratory Respiratory: Present: cough. Absent: dyspnea - Gastrointestinal Gastrointestinal: Absent: abdominal pain, nausea, vomiting - Genitourinary Genitourinary: Absent: dysuria, urinary frequency - Musculoskeletal Musculoskeletal: Absent: arthralgias, back pain, muscle weakness, myalgias - Neurological Neurological: Present: confusion. Absent: numbness, paresthesias, syncope - Psychiatric Psychiatric: Absent: anxiety, depression - Endocrine Endocrine: Absent: polydipsia, polyphagia, polyuria - Hematologic/Lymphatic Hematologic/Lymphatic: Absent: easy bleeding, easy bruising Exam - Constitutional Vitals: Period Temp Pulse Resp BP Sys/Barrett Pulse Ox Last 24 Hr 98.4 F-98.4 F 86-93 17-20 101-128/58-83 97-99 Exam: Constitutional System: Afebrile. Awake, alert and oriented x 3. No distress. No tremulousness. Head: Normocephalic, atraumatic. Ears, Nose and Throat System: No pain or tenderness. No epistaxis or discharge Eyes System: Pupils equal, round, and reactive. Extraocular muscles intact. Neck: Supple, without adenopathy, No jugular venous distention. No thyromegaly, neck mass, or prior surgery apparent. Respiratory System: Diminished posteriorly with inspiratory and expiratory wheezing noted. Cardiovascular System: Heart with regular rate and rhythm. No murmur. GI System: Abdomen soft, nontender. Normo active bowel sounds present. Musculoskeletal System: limbs with no pedal edema. Full distal pulses. Normal capillary refill. Neurological System: No discernable sensory deficit. No aphasia Psychiatric System: Conversation is rational Results - Labs CBC & BMP: 07/05/17 17:25 07/05/17 17:25 Lab Results: I have reviewed the past 24 hour labs
[2017-07-05] MEDS ORDERED: DEXTROSE 50% 25 GM/50 ML SYRINGE IV PRN (20:12)
[2017-07-05] MEDS ORDERED: NITROGLYCERIN SL 0.4 MG TABLET SL PRN (20:12)
[2017-07-05] MEDS ORDERED: GLUCAGON 1 MG VIAL IM PRN (20:12)
[2017-07-05] MEDS ORDERED: ALBUTEROL 1.25 MG/3 ML NEB RESP TX PRN (20:12)
[2017-07-05] MEDS ORDERED: ENOXAPARIN 30 MG/0.3 ML SYRINGE SUBCUT SCH (21:00)
[2017-07-05] MEDS: ATORVASTATIN 20 MG TABLET PO SCH (21:53)
[2017-07-05] MEDS: SODIUM CHLORIDE 0.9% 1,000 ML IV SCH (21:53)
[2017-07-05] MEDS: amLODIPine 5 MG TABLET PO SCH (21:53)
[2017-07-05] MEDS: INSULIN GLARGINE 100 UNIT/ML SUBCUT SCH (21:55)
[2017-07-05] MEDS: INSULIN LISPRO 100 UNIT/ML SUBCUT SCH (21:56)
[2017-07-05] MEDS: IPRATROPIUM 500 MCG/2.5 ML NEB RESP TX SCH (23:50)
[2017-07-06] MEDS: INSULIN LISPRO 100 UNIT/ML SUBCUT SCH ×6 (02:13→23:33)
[2017-07-06 05:32] LABS: Basophils # 0.1 10*3/uL (0.0-0.2); Basophils % 0.4 % (0.0-0.8); Eosinophils # 0.2 10*3/uL (0.0-0.87); Eosinophils % 1.3 % (0.00-10.9); Hematocrit 34.7 VOL% (35.7-47.0); Hemoglobin 12.1 GM/DL (12.0-16.0); Immature Granulocytes % 0.7 %; Lymphocytes # 3.7 10*3/uL (1.4-4.0); Lymphocytes % 26.6 % (21.3-54.2); Mean Corpuscular HGB Conc 34.9 GM/DL (32-36); Mean Corpuscular Hemoglobin 31 PG (27-34); Mean Corpuscular Volume 89.2 FL (87-102); Mean Platelet Volume 9.9 FL (9.6-12.0); Monocytes # 0.9 10*3/uL (0.11-0.8); Monocytes % 6.3 % (1.7-12.7); Neutrophils % 64.7 % (38.7-73.9); Platelet Count 238 T/CUMM (130-400); Red Blood Count 3.89 MC/CUMM (3.8-5.5); Red Cell Distribution Width 13.1 % (9.3-17.3)
[2017-07-06] MEDS: SODIUM CHLORIDE 0.9% 1,000 ML IV SCH ×3 (06:01→21:17)
[2017-07-06 06:09] LABS: Calcium 8.5 MG/DL (8.5-10.1); Osmolality,Calculated 273.5 MOS/KG (273-304); Potassium 4.7 MMOL/L (3.5-5.1)
[2017-07-06] MEDS: IPRATROPIUM 500 MCG/2.5 ML NEB RESP TX SCH ×3 (07:21→19:19)
--- NOTE | 2017-07-06 08:16 | Physician Query Form ---
CLICK EDIT DOCUMENT TO SELECT QUERY ANSWER --> OK --> SIGN Kait Forrester RN, CCDS Certified Clinical Smoking Tobacco Packer Hand W) [phone] (f) [phone] [email or web address] PROVIDERS: Make your selection(s) from the choices in EACH section by typing an "x" and enter comments in the comment section. Please use your independent medical judgment in providing your response. This request does not imply that any particular answer is desired or expected. CLINICAL INDICATORS: (Providers should not edit this section) The medical record indicates that the patient was admitted with hyponatremia, dehydration, Creatinine 1.80 admission that decreased to .90 on the , GFR of 27 that has increased to 63 on the and the patient is on IVF's. Clarify which of the following most accurately represents the patient's renal status: ( x) Acute kidney injury (non-traumatic) ( ) Acute renal failure ( ) Acute renal failure with underlying Chronic Kidney Disease (CKD) - please provide stage below ( ) Acute renal failure with pathological renal lesion ( ) Acute renal failure with necrosis ( ) tubular ( ) medullary ( ) cortical ( ) CKD - please provide stage below ( ) End Stage Renal Disease ( ) Acute interstitial nephritis ( ) Hepatorenal syndrome ( ) Other, please specify: ( ) Clinically unable to determine Chronic Kidney Disease Stages Source: National Kidney Disease Foundation ( ) Stage I (eGFR > or = 90) ( ) Stage II (eGFR 60 - 89) ( ) Stage III (eGFR 30 - 59) ( ) Stage IV (eGFR 15 - 29) ( ) Stage V (eGFR < 15 or dialysis) COMMENTS: PLEASE ALSO DOCUMENT RESPONSE IN PROGRESS NOTES AND/OR DISCHARGE SUMMARY Use of terms such as suspected, likely, or probable (associated with a specific diagnosis that is being evaluated, monitored, or treated as if it exists) are acceptable and can be restated in the discharge summary if not ruled out. MTDD
--- NOTE | 2017-07-06 08:17 | EKG Report ---
Stationary ECG Study [facility] Test Date: 07/05/2017 5:59:43 PM Pat Name: PALMER KELLY Department: Room: 239 Gender: F Ambulatory Nurse: : 1950 Requested by: Gian Landry Order Number: [id number] Km MD: JYOTI NO Intervals [place] Rate: 96 P: 999 DC: 0 QRS: 145 QRSD: 97 T: 81 QT: 334 QTc: 388 Interpretive Statements SINUS RHYTHM RIGHT AXIS DEVIATION LOW VOLTAGE TRACING Electronically Signed On 07-06-17 17:07:11 CDT by JYOTI NO [email or web address]
[2017-07-06] MEDS: POLYETHYLENE GLYCOL POWDER 17 GM PACK PO SCH (09:00)
[2017-07-06] MEDS ORDERED: ERGOCALCIFEROL 50,000 UNIT CAPSULE PO SCH (09:00)
--- NOTE | 2017-07-06 09:40 | Hospitalist Progress Note ---
Assessment and Plan - Time spent with patient Time spent with patient: Greater than 30 minutes (1) Insulin dependent diabetes mellitus Status: Acute Current Visit: Yes (2) COPD (chronic obstructive pulmonary disease) Status: Chronic Current Visit: Yes Qualifiers: COPD type: unspecified COPD Qualified Code(s): J44.9 - Chronic obstructive pulmonary disease, unspecified (3) History of coronary artery disease Status: Acute Current Visit: Yes (4) Closed intertrochanteric fracture of left hip Status: Resolved Current Visit: No Qualifiers: Encounter type: initial encounter Fracture alignment: displaced Qualified Code(s): S72.142A - Displaced intertrochanteric fracture of left femur , initial encounter for closed fracture (5) Altered mental status Status: Resolved Current Visit: No Qualifiers: Altered mental status type: delirium Qualified Code(s): R41.0 - Disorientation, unspecified (6) Urinary tract infection Status: Acute Assessment and plan: We will keep her current IV antibiotics and follow final cultures. Monitor her mental status. Check CT angiogram to rule out acute pulmonary embolism. Supplemental oxygen to keep saturation above 92%. Repeat ABG in the morning. DVT prophylaxis Physical and Occupational Therapy follow-up. Current Visit: Yes Hospitalist: Subjective Interval history: Being managed for change in mental status suspected to be related to urinary tract infection. Urine cultures negative so far. However noted hypoxemia on ABG on admission, she was sleeping quietly at the time of my rounds. Being that she had recent surgery 4 weeks ago we have to rule out acute pulmonary embolism as a cause of her hypoxemia. No new complaints reported. No family at bedside at the time of my rounds. Exam - Constitutional Vitals: Period Temp Pulse Resp BP Sys/Barrett Pulse Ox Last 24 Hr 97 F-98.5 F 77-93 16-20 101-154/58-99 91-99 Exam: Constitutional System: Afebrile. Awake, alert and oriented x 3. No distress. No tremulousness. Head: Normocephalic, atraumatic. Ears, Nose and Throat System: No pain or tenderness. No epistaxis or discharge Eyes System: Pupils equal, round, and reactive. Extraocular muscles intact. Neck: Supple, without adenopathy, No jugular venous distention. No thyromegaly, neck mass, or prior surgery apparent. Respiratory System: Diminished posteriorly with inspiratory and expiratory wheezing noted. Cardiovascular System: Heart with regular rate and rhythm. No murmur. GI System: Abdomen soft, nontender. Normo active bowel sounds present. Musculoskeletal System: limbs with no pedal edema. Full distal pulses. Normal capillary refill. Neurological System: No discernable sensory deficit. No aphasia Psychiatric System: Conversation is rational Results - Labs CBC & BMP: 07/06/17 05:05 07/06/17 05:05 Lab Results: I have reviewed the past 24 hour labs
[2017-07-06] MEDS: FLUoxetine 20 MG CAPSULE PO SCH (10:40)
[2017-07-06] MEDS: ASPIRIN EC 325 MG TABLET PO SCH (10:40)
[2017-07-06] MEDS: INSULIN GLARGINE 100 UNIT/ML SUBCUT SCH ×2 (10:40→23:34)
[2017-07-06] MEDS: VALSARTAN 160 MG TABLET PO SCH (10:40)
[2017-07-06] MEDS ORDERED: ENOXAPARIN 40 MG/0.4 ML SYRINGE SUBCUT SCH (21:00)
[2017-07-06] MEDS ORDERED: LEVOFLOXACIN INJ 500 MG in PREMIX 1 EACH IV SCH (21:00)
[2017-07-06] MEDS: amLODIPine 5 MG TABLET PO SCH (21:25)
[2017-07-06] MEDS: ATORVASTATIN 20 MG TABLET PO SCH (21:25)
[2017-07-07] MEDS: IPRATROPIUM 500 MCG/2.5 ML NEB RESP TX SCH ×2 (00:06→07:23)
[2017-07-07] MEDS: INSULIN LISPRO 100 UNIT/ML SUBCUT SCH ×3 (02:55→12:17)
[2017-07-07] MEDS: SODIUM CHLORIDE 0.9% 1,000 ML IV SCH (05:59)
[2017-07-07] MEDS: ASPIRIN EC 325 MG TABLET PO SCH (08:55)
[2017-07-07] MEDS: VALSARTAN 160 MG TABLET PO SCH (08:55)
[2017-07-07] MEDS: FLUoxetine 20 MG CAPSULE PO SCH (08:55)
[2017-07-07] MEDS: POLYETHYLENE GLYCOL POWDER 17 GM PACK PO SCH (08:56)
[2017-07-07] MEDS: INSULIN GLARGINE 100 UNIT/ML SUBCUT SCH (08:56)
--- NOTE | 2017-07-07 10:43 | Discharge Summary ---
Hospital Course - Hospital Course Hospital Course: 67-year-old lady with history of hypertension, diabetes, coronary artery disease status post stent placement, recent ORIF of right hip. She was brought to the emergency room for worsening confusion which started 1 night prior to presentation. But states that confusion had started couple of days earlier was associated with falls below luckily there was no injuries or fractures. During evaluation in the emergency room was found to have urinary tract infection significantly elevated blood glucose, in the ER blood glucose of 723 was recorded but she was not in DKA. She was admitted to the floor, started on aggressive fluid resuscitation and IV antibiotics. She gradually returned to baseline mental status. Her blood sugars also improved with IV fluid hydration and insulin and on the day of discharge, her blood sugars were 99, 176. She was started on empiric antibiotics initially, urine cultures however came back negative and antibiotics discontinued. On the day of discharge, swelling in her usual state of she had returned to baseline mental status, denied any urinary symptoms and blood sugars are stable. She reached maximum benefit of in-hospital care, stable enough for discharge to outpatient follow-up. Discharge plan was discussed with patient and her at bedside unable verbalize understanding. - Time spent with patient Time with patient DS: Greater than 30 minutes Diagnosis - Discharge Diagnosis (1) Insulin dependent diabetes mellitus Status: Acute (2) COPD (chronic obstructive pulmonary disease) Status: Chronic (3) History of coronary artery disease Status: Acute (4) Closed intertrochanteric fracture of left hip Status: Resolved (5) Altered mental status Status: Resolved (6) Urinary tract infection Status: Acute Discharge Plan - Discharge Data Disposition: Disch To Home/Self Care Condition at Discharge: Stable Discharge Diet: advance to your usual diet, heart healthy, low salt diet Activity: resume usual activities as tolerated - Discharge Medications New Levofloxacin Tab [Levaquin Tab] 750 mg PO DAILY #5 tablet Continue Nitroglycerin Sl Tab [Nitrostat] 0.4 mg SL DIRECTED PRN PRN Reason: Chest Pain amLODIPine [Norvasc] 5 mg PO BEDTIME Valsartan [Diovan] 320 mg PO DAILY #30 tablet Polyethylene Glycol Powder [Miralax] 17 gm PO DAILY Insulin Glargine,Hum.rec.anlog [Lantus SoloStar] 45 unit SUBCUT QAM Insulin Glargine,Hum.rec.anlog [Lantus SoloStar] 25 unit SUBCUT BEDTIME Fluoxetine HCl 20 mg PO DAILY Aspirin EC Tab 325 mg PO DAILY Butalbital/Acet/Caff 50-325-40 [Fioricet 50-325-40 mg Tablet] 1 tablet PO BID PRN PRN Reason: Pain hydroCHLOROthiazide [Hydrochlorothiazide] 12.5 mg PO BID Ondansetron [Ondansetron Odt] 8 mg PO Q8H PRN PRN Reason: Nausea Meloxicam 15 mg PO DAILY Atorvastatin [Lipitor] 20 mg PO BEDTIME Amitriptyline HCl 100 mg PO BEDTIME Trazodone HCl 100 mg PO BEDTIME #0 Cholecalciferol (Vitamin D3) [Vitamin D3] 50,000 unit PO Q7D Pregabalin [Lyrica] 300 mg PO BID Discontinued Hydrocodone/Acetaminophen [Hydrocodon-Acetaminophn 10-325] 1 tablet PO Q6H PRN PRN Reason: Pain - Follow Up or Referral - Forms/Instructions Additional Discharge Instructions: PCP in 1-2 weeks Exam - Constitutional Vitals: Period Temp Pulse Resp BP Sys/Barrett Pulse Ox Last 24 Hr 97.2 F-98.2 F 75-91 18-22 107-149/71-84 91-99 Discharge Results Procedures and tests throughout hospitalization: Pending Orders 07/05/17 Urine Culture Routine 07/05/17 17:30 Blood Culture Stat 07/07/17 10:20 ABG [Arterial Blood Gas] Stat Labs on day of discharge: Labs from last 24 hours 07/07/17 07/07/17 07/07/17 10:32 06:14 02:47 POC Glucose 176 H 99 125 H 07/06/17 07/06/17 07/06/17 22:40 17:57 14:41 POC Glucose 218 H 184 H 328 H 07/05/17 17:08 POC Glucose > 500 H* Preliminary micro results at discharge 07/05/17 17:30 Blood Culture - Preliminary Blood No growth at 1 day 07/05/17 17:27 Blood Culture - Preliminary Blood No growth at 1 day 07/05/17 Unknown Urine Culture - Preliminary Urine,Voided No Growth at 12 hours. DS: Provider Date of admission: 07/05/17 19:31 Primary care physician: . No PCP Attending physician on admission: Wyatt Lucero MD Consults: 07/06/17 10:03 Consult to Physical Therapy [CONS] Routine Reason for Physical Therapy: Ambulation Gait Training Evaluate and Treat Discharging clinician: Tate Lora MD
[2017-07-07 11:41] LABS: ABG Base Excess 1.1 MMOL/L (-2.5-2.5); ABG HCO3 25.3 MMOL/L (20-26); ABG Oxygen Saturation 94.1 % (95-100); ABG PCO2 37.3 MM HG (35-48); ABG PH 7.435 (7.35-7.45); ABG PO2 71.6 MM HG (80-95); ABG TCO2 21.7 MMOL/L (23-27); Allen Test Positive; Pt O2 Delivery Device Room Air
[2017-07-07 12:24] VITALS: BP 178/96
== END 2017-07-07 13:00 | disposition home or self-care (01) | DRG 637 ==
LOC: N.ED 16:54 → N.EDINP 19:31 → SUATTDRO 19:31 → N.2E 19:50
PROVIDERS: ADMIT Internal Medicine; ATTEND Internal Medicine